=== PATIENT | male | born 1960 | race African-American/Black ===

== ENCOUNTER 2016-06-21 03:48 | Emergency (ER) | payer OTHER ==
[~2016-06-21] VITALS: Ht 177.8 cm; Wt 109.1 kg
[~2016-06-21 03:48] MED LIST: FERR-89 PO; OLAN7.5T2 PO
[2016-06-21 05:07] VITALS: BP 135/72
[2016-06-21] MEDS ORDERED: ATEN25 PO (05:27)
[2016-06-21] MEDS ORDERED: IBUPROFEN 600 MG TABLET PO ONE (06:15)
== END 2016-06-21 06:13 | disposition home or self-care (01) ==
LOC: EMS 03:49
DX: S83.91XA Sprain of unspecified site of right knee, initial encounter (principal); X58.XXXA Exposure to other specified factors, initial encounter; Y93.89 Activity, other specified; Y92.89 Other specified places as the place of occurrence of the external cause; Y99.8 Other external cause status
CPT/HCPCS: 99284

== ENCOUNTER 2016-09-14 07:15 | Inpatient (IN) | payer MEDICAID, OTHER ==
[~2016-09-14] VITALS: Ht 177.8 cm; Wt 109.4 kg
[2016-09-14 07:56] LABS: BASOPHILS % (AUTO) 0.1 % (0.0-2.0); EOSINOPHILS % (AUTO) 5.9 % (1.0-6.0); HEMATOCRIT 42.6 % (41-53); HEMOGLOBIN 13.6 g/dL (13.5-17.5); LYMPHOCYTES # (AUTO) 0.6 K/uL (1.0-4.8); LYMPHOCYTES % (AUTO) 12.8 % (22.0-44.0); MEAN CORPUSCULAR HEMOGLOBIN 28.6 pg (26.0-34.0); MEAN CORPUSCULAR VOLUME 90 fL (80-100); MONOCYTES # (AUTO) 0.4 K/uL (0.1-1.0); NEUTROPHILS # (AUTO) 3.6 K/uL (1.8-7.7); NEUTROPHILS % (AUTO) 73.2 % (40.0-70.0); PLATELET COUNT (AUTO) 188 K/uL (150-450); RED BLOOD CELL COUNT(AUTO) 4.76 MIL/uL (4.50-5.90); RED CELL DISTRIBUTION WIDTH 14.5 % (11.5-14.5)
[2016-09-14 08:06] LABS: ANION GAP 6 mmol/L (8-16); CALCIUM, TOTAL 8.7 mg/dL (8.8-10.5); CARBON DIOXIDE 32 mmol/L (22-29); CHLORIDE 104 mmol/L (98-107); CREATININE 0.77 mg/dL (0.60-1.30); GLOMERULAR FILTR. RATE CALC > 60 mL/min (>60); POTASSIUM 3.4 mmol/L (3.5-5.1); SODIUM SERUM 142 mmol/L (136-145); UREA NITROGEN, BLOOD 12 mg/dL (7-18)
[2016-09-14 08:11] LABS: ALANINE AMINOTRANSFERASE 32 U/L (12-78); ALBUMIN 3.9 g/dL (3.4-5.0); ASPARTATE AMINOTRANSFERASE 48 U/L (15-37); BILIRUBIN,TOTAL 0.7 mg/dL (0.1-1.0); TOTAL PROTEIN, SERUM 8.4 g/dL (6.4-8.2)
[2016-09-14 12:00] VITALS: BP 133/69
[2016-09-14] MEDS ORDERED: POTASSIUM CHLORIDE 20 MEQ ER TABLET PO ONE (12:45)
[2016-09-14 16:00] VITALS: BP 124/67
[2016-09-14] MEDS: OLANZapine 10 MG TABLET PO SCH (20:15)
[2016-09-14] MEDS: LORazepam 2 MG TABLET PO PRN (20:15)
[2016-09-15 06:49] VITALS: BP 121/78
[2016-09-15 08:44] VITALS: BP 109/61
[2016-09-15 09:24] LABS: ALANINE AMINOTRANSFERASE 23 U/L (12-78); ALBUMIN 2.9 g/dL (3.4-5.0); ANION GAP 7 mmol/L (8-16); ASPARTATE AMINOTRANSFERASE 29 U/L (15-37); BILIRUBIN,TOTAL 0.3 mg/dL (0.1-1.0); CALCIUM, TOTAL 8.5 mg/dL (8.8-10.5); CARBON DIOXIDE 28 mmol/L (22-29); CHLORIDE 106 mmol/L (98-107); CHOL/HDL RATIO 2.7 (4.2-7.3); CREATININE 0.74 mg/dL (0.60-1.30); GLOMERULAR FILTR. RATE CALC > 60 mL/min (>60); POTASSIUM 3.7 mmol/L (3.5-5.1); SODIUM SERUM 141 mmol/L (136-145); THYROID STIMULATING HORMONE 0.97 uIU/mL (0.36-3.74); UREA NITROGEN, BLOOD 12 mg/dL (7-18)
[2016-09-15 16:13] VITALS: BP 136/68
[2016-09-15] MEDS: HALOPERIDOL 5 MG TABLET PO PRN (16:13)
[2016-09-15] MEDS: LORazepam 2 MG TABLET PO PRN ×2 (16:13→20:19)
[2016-09-15] MEDS: OXYBUTYNIN CHLORIDE 5 MG TABLET PO SCH (20:02)
[2016-09-15] MEDS: OLANZapine 10 MG TABLET PO SCH (20:19)
[2016-09-16 06:00] VITALS: BP 139/67
[2016-09-16 08:14] VITALS: BP 133/60
[2016-09-16] MEDS: OXYBUTYNIN CHLORIDE 5 MG TABLET PO SCH ×2 (09:29→16:45)
[2016-09-16] MEDS: LORazepam 2 MG TABLET PO PRN (09:35)
[2016-09-16] MEDS: HALOPERIDOL 5 MG TABLET PO PRN (09:35)
[2016-09-16 16:27] VITALS: BP 133/64
[2016-09-16] MEDS: OLANZapine 10 MG TABLET PO SCH (20:56)
[2016-09-17] MEDS: LORazepam 2 MG TABLET PO PRN ×2 (04:09→17:34)
[2016-09-17 06:59] VITALS: BP 136/68
[2016-09-17 07:07] VITALS: BP 128/83
[2016-09-17 09:09] VITALS: BP 134/73
[2016-09-17] MEDS: OXYBUTYNIN CHLORIDE 5 MG TABLET PO SCH ×2 (09:11→17:34)
[2016-09-17 16:33] VITALS: BP 124/68
[2016-09-17] MEDS: HALOPERIDOL 5 MG TABLET PO PRN (17:34)
[2016-09-17] MEDS: OLANZapine 10 MG TABLET PO SCH (20:13)
[2016-09-18 06:50] VITALS: BP 115/63
[2016-09-18 08:16] VITALS: BP 144/77
[2016-09-18] MEDS: OXYBUTYNIN CHLORIDE 5 MG TABLET PO SCH ×2 (09:39→17:02)
[2016-09-18 16:25] VITALS: BP 135/80
[2016-09-18] MEDS: HALOPERIDOL 5 MG TABLET PO PRN (17:02)
[2016-09-18] MEDS: LORazepam 2 MG TABLET PO PRN (17:02)
[2016-09-18] MEDS: OLANZapine 10 MG TABLET PO SCH (20:36)
[2016-09-19 06:55] VITALS: BP 136/73
[2016-09-19 08:14] VITALS: BP 122/59
[2016-09-19] MEDS: HALOPERIDOL 5 MG TABLET PO PRN ×2 (08:27→16:10)
[2016-09-19] MEDS: OXYBUTYNIN CHLORIDE 5 MG TABLET PO SCH ×2 (08:27→16:10)
[2016-09-19] MEDS: LORazepam 2 MG TABLET PO PRN ×3 (08:27→20:13)
[2016-09-19 10:13] LABS: APPEARANCE,URINE CLEAR (CLEAR); GLUCOSE, URINE (UA) NEGATIVE (NEGATIVE); KETONES,URINE NEGATIVE (NEGATIVE); LEUKOCYTE ESTERASE ,URINE NEGATIVE (NEGATIVE); OCCULT BLOOD,URINE NEGATIVE (NEGATIVE); PROTEIN,URINE NEGATIVE (NEGATIVE)
[2016-09-19 10:20] LABS: ADD UA MICROSCOPIC NO
[2016-09-19 16:00] VITALS: BP 138/76
[2016-09-19] MEDS: OLANZapine 10 MG TABLET PO SCH (20:13)
[2016-09-19] MEDS: ZOLPIDEM TARTRATE 10 MG TABLET PO PRN (20:13)
[2016-09-20 07:22] VITALS: BP 132/79
[2016-09-20 08:13] VITALS: BP 141/83
[2016-09-20] MEDS: OXYBUTYNIN CHLORIDE 5 MG TABLET PO SCH ×2 (09:34→16:34)
[2016-09-20 16:00] VITALS: BP 135/75
[2016-09-20] MEDS: LORazepam 2 MG TABLET PO PRN ×2 (16:38→22:28)
[2016-09-20] MEDS: OLANZapine 10 MG TABLET PO SCH (20:18)
[2016-09-20] MEDS: ZOLPIDEM TARTRATE 10 MG TABLET PO PRN (21:31)
[2016-09-21 00:56] VITALS: BP 139/78
[2016-09-21] MEDS: HALOPERIDOL 5 MG TABLET PO PRN (01:00)
[2016-09-21 08:18] VITALS: BP 147/70
[2016-09-21] MEDS: OXYBUTYNIN CHLORIDE 5 MG TABLET PO SCH ×2 (08:51→16:57)
[2016-09-21 16:21] VITALS: BP 124/68
[2016-09-21] MEDS: OLANZapine 10 MG TABLET PO SCH (21:04)
[2016-09-22 06:37] VITALS: BP 144/81
[2016-09-22] MEDS: LORazepam 2 MG TABLET PO PRN ×2 (08:23→16:29)
[2016-09-22] MEDS: OXYBUTYNIN CHLORIDE 5 MG TABLET PO SCH ×2 (08:23→16:29)
[2016-09-22] MEDS: HALOPERIDOL 5 MG TABLET PO PRN ×2 (08:23→16:29)
[2016-09-22 08:38] VITALS: BP 125/64
[2016-09-22 16:00] VITALS: BP 129/70
[2016-09-22] MEDS: OLANZapine 5 MG TABLET PO SCH (20:50)
[2016-09-23 07:20] VITALS: BP 121/78
[2016-09-23 08:00] VITALS: BP 141/68
[2016-09-23] MEDS: HALOPERIDOL 5 MG TABLET PO PRN (09:20)
[2016-09-23] MEDS: LORazepam 2 MG TABLET PO PRN (09:20)
[2016-09-23] MEDS: OXYBUTYNIN CHLORIDE 5 MG TABLET PO SCH ×2 (09:20→17:34)
[2016-09-23 16:00] VITALS: BP 124/62
[2016-09-23] MEDS: OLANZapine 5 MG TABLET PO SCH (20:35)
[2016-09-24 07:21] VITALS: BP 120/61
[2016-09-24 08:08] VITALS: BP 133/68
[2016-09-24] MEDS: OXYBUTYNIN CHLORIDE 5 MG TABLET PO SCH ×2 (08:13→16:55)
[2016-09-24] MEDS: LORazepam 2 MG TABLET PO PRN (08:26)
[2016-09-24 16:16] VITALS: BP 125/69
[2016-09-24] MEDS: OLANZapine 5 MG TABLET PO SCH (20:56)
[2016-09-25] MEDS: LORazepam 2 MG TABLET PO PRN (01:07)
[2016-09-25] MEDS: ZOLPIDEM TARTRATE 10 MG TABLET PO PRN (01:07)
[2016-09-25 07:26] VITALS: BP 125/79
[2016-09-25 08:36] VITALS: BP 141/68
[2016-09-25] MEDS: OXYBUTYNIN CHLORIDE 5 MG TABLET PO SCH ×2 (08:43→16:03)
[2016-09-25 16:07] VITALS: BP 126/64
[2016-09-25] MEDS: OLANZapine 5 MG TABLET PO SCH (20:34)
[2016-09-26 06:37] VITALS: BP 122/76
[2016-09-26 08:18] VITALS: BP 112/73
[2016-09-26] MEDS: OXYBUTYNIN CHLORIDE 5 MG TABLET PO SCH ×2 (08:24→16:09)
[2016-09-26 09:30] VITALS: BP 115/49
[2016-09-26 16:01] VITALS: BP 121/74
[2016-09-26] MEDS: OLANZapine 5 MG TABLET PO SCH (20:12)
[2016-09-27 07:14] VITALS: BP 129/72
[2016-09-27 08:17] VITALS: BP 129/70
[2016-09-27] MEDS: OXYBUTYNIN CHLORIDE 5 MG TABLET PO SCH ×2 (08:23→16:18)
[2016-09-27 16:03] VITALS: BP 136/68
[2016-09-27] MEDS: OLANZapine 5 MG TABLET PO SCH (20:15)
[2016-09-28 06:41] VITALS: BP 119/73
[2016-09-28] MEDS: OXYBUTYNIN CHLORIDE 5 MG TABLET PO SCH ×2 (08:20→15:38)
[2016-09-28 08:33] VITALS: BP 132/60
[2016-09-28 15:34] VITALS: BP 124/84
[2016-09-28 16:00] VITALS: BP 124/83
[2016-09-28] MEDS: OLANZapine 5 MG TABLET PO SCH (20:24)
[2016-09-29 06:30] VITALS: BP 135/87
[2016-09-29] MEDS: LORazepam 2 MG TABLET PO PRN (06:36)
[2016-09-29 08:01] VITALS: BP 122/78
[2016-09-29] MEDS: OXYBUTYNIN CHLORIDE 5 MG TABLET PO SCH ×2 (08:08→16:06)
[2016-09-29 16:00] VITALS: BP 141/78
[2016-09-29] MEDS: OLANZapine 5 MG TABLET PO SCH (20:01)
[2016-09-30] MEDS: ZOLPIDEM TARTRATE 10 MG TABLET PO PRN (00:02)
[2016-09-30 00:10] VITALS: BP 133/76
[2016-09-30] MEDS: OXYBUTYNIN CHLORIDE 5 MG TABLET PO SCH ×2 (08:32→16:48)
[2016-09-30 09:12] VITALS: BP 155/84
[2016-09-30 16:35] VITALS: BP 142/80
[2016-09-30] MEDS: OLANZapine 5 MG TABLET PO SCH (20:14)
[2016-10-01 06:42] VITALS: BP 142/94
[2016-10-01 08:27] VITALS: BP 136/68
[2016-10-01] MEDS: OXYBUTYNIN CHLORIDE 5 MG TABLET PO SCH ×2 (08:31→16:48)
[2016-10-01 16:39] VITALS: BP 147/70
[2016-10-01] MEDS: OLANZapine 5 MG TABLET PO SCH (20:40)
[2016-10-02 05:45] VITALS: BP 138/85
[2016-10-02 08:35] VITALS: BP 138/61
[2016-10-02] MEDS: OXYBUTYNIN CHLORIDE 5 MG TABLET PO SCH ×2 (08:58→16:26)
[2016-10-02 16:06] VITALS: BP 130/73
[2016-10-02] MEDS: OLANZapine 10 MG TABLET PO SCH (20:42)
[2016-10-03 07:12] VITALS: BP 122/75
[2016-10-03 08:10] VITALS: BP 123/64
[2016-10-03] MEDS: OXYBUTYNIN CHLORIDE 5 MG TABLET PO SCH ×2 (09:01→17:22)
[2016-10-03 16:00] VITALS: BP 134/89
[2016-10-03] MEDS: OLANZapine 10 MG TABLET PO SCH (21:37)
[2016-10-04 07:21] VITALS: BP 129/72
[2016-10-04 08:35] VITALS: BP 134/71
[2016-10-04] MEDS: OXYBUTYNIN CHLORIDE 5 MG TABLET PO SCH ×2 (08:59→16:46)
[2016-10-04 16:19] VITALS: BP 130/70
[2016-10-04] MEDS: OLANZapine 10 MG TABLET PO SCH (20:37)
[2016-10-05 06:37] VITALS: BP 111/73
[2016-10-05 08:20] VITALS: BP 116/58
[2016-10-05] MEDS: OXYBUTYNIN CHLORIDE 5 MG TABLET PO SCH ×2 (08:48→17:00)
[2016-10-05 16:39] VITALS: BP 138/65
[2016-10-05] MEDS: OLANZapine 10 MG TABLET PO SCH (20:18)
[2016-10-06 03:14] VITALS: BP 139/85
[2016-10-06 08:10] VITALS: BP 117/70
[2016-10-06] MEDS: OXYBUTYNIN CHLORIDE 5 MG TABLET PO SCH ×2 (09:51→16:33)
[2016-10-06 16:16] VITALS: BP 136/74
[2016-10-06] MEDS: OLANZapine 10 MG TABLET PO SCH (20:21)
[2016-10-07] VITALS: BP 137/75
[2016-10-07 08:24] VITALS: BP 139/79
[2016-10-07] MEDS: OXYBUTYNIN CHLORIDE 5 MG TABLET PO SCH ×2 (08:56→17:50)
[2016-10-07] MEDS: OLANZapine 10 MG TABLET PO SCH ×2 (08:56→20:23)
[2016-10-07 16:00] VITALS: BP 135/83
[2016-10-07 20:52] LABS: GLUCOSE,POINT OF CARE 120 MG/DL (70-110)
[2016-10-08 00:13] VITALS: BP 130/71
[2016-10-08 06:00] VITALS: BP 130/64
[2016-10-08 08:09] VITALS: BP 132/64
[2016-10-08] MEDS: OLANZapine 10 MG TABLET PO SCH ×2 (08:15→20:10)
[2016-10-08] MEDS: OXYBUTYNIN CHLORIDE 5 MG TABLET PO SCH ×2 (08:16→16:13)
[2016-10-08 16:00] VITALS: BP 138/74
[2016-10-09 03:01] VITALS: BP 137/83
[2016-10-09 08:08] VITALS: BP 145/80
[2016-10-09] MEDS: OXYBUTYNIN CHLORIDE 5 MG TABLET PO SCH ×2 (08:22→16:02)
[2016-10-09] MEDS: OLANZapine 10 MG TABLET PO SCH ×2 (08:22→20:32)
[2016-10-09 16:09] VITALS: BP 139/73
[2016-10-10 04:11] VITALS: BP 140/83
[2016-10-10] MEDS: OLANZapine 10 MG TABLET PO SCH ×2 (08:21→20:11)
[2016-10-10] MEDS: OXYBUTYNIN CHLORIDE 5 MG TABLET PO SCH ×2 (08:21→16:30)
[2016-10-10 09:20] VITALS: BP 129/58
[2016-10-10 17:54] VITALS: BP 118/76
[2016-10-11 00:11] VITALS: BP 126/74
[2016-10-11] MEDS: OXYBUTYNIN CHLORIDE 5 MG TABLET PO SCH ×2 (08:06→16:56)
[2016-10-11] MEDS: OLANZapine 10 MG TABLET PO SCH ×2 (08:06→20:30)
[2016-10-11 09:14] VITALS: BP 129/75
[2016-10-11 16:00] VITALS: BP 129/67
[2016-10-12 01:40] VITALS: BP 144/76
[2016-10-12] MEDS: ZOLPIDEM TARTRATE 10 MG TABLET PO PRN (01:46)
[2016-10-12 07:35] LABS: BASOPHILS % (AUTO) 0.3 % (0.0-2.0); EOSINOPHILS % (AUTO) 3.5 % (1.0-6.0); HEMATOCRIT 40.1 % (41-53); HEMOGLOBIN 12.7 g/dL (13.5-17.5); LYMPHOCYTES # (AUTO) 1.2 K/uL (1.0-4.8); MEAN CORPUSCULAR HEMOGLOBIN 28.3 pg (26.0-34.0); MEAN CORPUSCULAR HGB CONC 31.7 G/dL (31.0-37.0); MEAN CORPUSCULAR VOLUME 89 fL (80-100); MONOCYTES # (AUTO) 0.5 K/uL (0.1-1.0); MONOCYTES % (AUTO) 9.5 % (2.0-9.0); NEUTROPHILS # (AUTO) 3.1 K/uL (1.8-7.7); NEUTROPHILS % (AUTO) 61.7 % (40.0-70.0); PLATELET COUNT (AUTO) 158 K/uL (150-450); RED BLOOD CELL COUNT(AUTO) 4.51 MIL/uL (4.50-5.90)
[2016-10-12 07:43] LABS: ALANINE AMINOTRANSFERASE 20 U/L (12-78); ALBUMIN 3.9 g/dL (3.4-5.0); ANION GAP 6 mmol/L (8-16); ASPARTATE AMINOTRANSFERASE 20 U/L (15-37); BILIRUBIN,TOTAL 0.4 mg/dL (0.1-1.0); CALCIUM, TOTAL 9.2 mg/dL (8.8-10.5); CARBON DIOXIDE 33 mmol/L (22-29); CHLORIDE 102 mmol/L (98-107); CREATININE 0.89 mg/dL (0.60-1.30); GLOMERULAR FILTR. RATE CALC > 60 mL/min (>60); POTASSIUM 3.8 mmol/L (3.5-5.1); SODIUM SERUM 141 mmol/L (136-145); TOTAL PROTEIN, SERUM 8.6 g/dL (6.4-8.2); UREA NITROGEN, BLOOD 15 mg/dL (7-18)
[2016-10-12 07:47] LABS: HEMOGLOBIN A1C 6.4 % (4.5-6.2)
[2016-10-12 08:30] VITALS: BP 120/83
[2016-10-12] MEDS: OLANZapine 10 MG TABLET PO SCH ×2 (09:59→20:26)
[2016-10-12] MEDS: OXYBUTYNIN CHLORIDE 5 MG TABLET PO SCH ×2 (09:59→16:18)
[2016-10-12 16:00] VITALS: BP 140/74
[2016-10-13 07:00] VITALS: BP 142/76
[2016-10-13 08:10] VITALS: BP 136/75
[2016-10-13] MEDS: OLANZapine 10 MG TABLET PO SCH ×2 (08:42→20:07)
[2016-10-13] MEDS: OXYBUTYNIN CHLORIDE 5 MG TABLET PO SCH ×2 (08:42→16:05)
[2016-10-13 16:00] VITALS: BP 126/69
[2016-10-14 04:44] VITALS: BP 138/81
[2016-10-14 08:15] VITALS: BP 136/76
[2016-10-14] MEDS: OLANZapine 10 MG TABLET PO SCH ×2 (08:22→20:12)
[2016-10-14] MEDS: OXYBUTYNIN CHLORIDE 5 MG TABLET PO SCH ×2 (08:22→17:00)
[2016-10-14 16:00] VITALS: BP 135/68
[2016-10-15 05:05] VITALS: BP 132/68
[2016-10-15 08:19] VITALS: BP 133/72
[2016-10-15] MEDS: OXYBUTYNIN CHLORIDE 5 MG TABLET PO SCH ×2 (08:52→16:20)
[2016-10-15] MEDS: OLANZapine 10 MG TABLET PO SCH ×2 (08:52→20:45)
[2016-10-15 16:00] VITALS: BP 132/72
[2016-10-16 00:36] VITALS: BP 128/70
[2016-10-16 08:08] VITALS: BP 115/67
[2016-10-16] MEDS: OLANZapine 10 MG TABLET PO SCH ×2 (08:28→20:37)
[2016-10-16] MEDS: OXYBUTYNIN CHLORIDE 5 MG TABLET PO SCH ×2 (08:28→16:44)
[2016-10-16 16:09] VITALS: BP 141/70
[2016-10-17 00:15] VITALS: BP 107/64
[2016-10-17] MEDS: ZOLPIDEM TARTRATE 10 MG TABLET PO PRN (00:20)
[2016-10-17] MEDS: OLANZapine 10 MG TABLET PO SCH ×2 (08:11→20:16)
[2016-10-17] MEDS: OXYBUTYNIN CHLORIDE 5 MG TABLET PO SCH ×2 (08:11→16:02)
[2016-10-17 08:32] VITALS: BP 121/68
[2016-10-17] MEDS ORDERED: OLANZapine 10 MG TABLET PO ONE (10:30)
[2016-10-17 16:06] VITALS: BP 135/76
[2016-10-18 05:41] VITALS: BP 138/90
[2016-10-18] MEDS: LOPERAMIDE HCL 2 MG CAPSULE PO PRN (06:42)
[2016-10-18] MEDS: OLANZapine 10 MG TABLET PO SCH ×2 (08:07→20:18)
[2016-10-18] MEDS: OXYBUTYNIN CHLORIDE 5 MG TABLET PO SCH ×2 (08:07→16:09)
[2016-10-18 08:16] VITALS: BP 127/69
[2016-10-18 16:13] VITALS: BP 126/67
[2016-10-18 18:56] VITALS: BP 134/99
[2016-10-19 00:18] VITALS: BP 136/78
[2016-10-19] MEDS: OLANZapine 10 MG TABLET PO SCH ×2 (08:29→20:52)
[2016-10-19] MEDS: OXYBUTYNIN CHLORIDE 5 MG TABLET PO SCH ×2 (08:29→16:16)
[2016-10-19 08:51] VITALS: BP 122/69
[2016-10-19 16:11] VITALS: BP 129/73
[2016-10-20 05:58] VITALS: BP 140/71
[2016-10-20] MEDS: OLANZapine 10 MG TABLET PO SCH ×2 (08:07→20:32)
[2016-10-20] MEDS: OXYBUTYNIN CHLORIDE 5 MG TABLET PO SCH ×2 (08:07→16:03)
[2016-10-20 08:30] VITALS: BP 132/73
[2016-10-20 16:04] VITALS: BP 135/71
[2016-10-21 04:27] VITALS: BP 148/90
[2016-10-21 08:16] VITALS: BP 139/81
[2016-10-21] MEDS: OLANZapine 10 MG TABLET PO SCH ×2 (08:19→20:40)
[2016-10-21] MEDS: OXYBUTYNIN CHLORIDE 5 MG TABLET PO SCH ×2 (08:19→16:50)
[2016-10-21 16:00] VITALS: BP 134/84
[2016-10-22 06:39] VITALS: BP 125/73
[2016-10-22 08:20] VITALS: BP 135/93
[2016-10-22] MEDS: OXYBUTYNIN CHLORIDE 5 MG TABLET PO SCH ×2 (08:23→17:04)
[2016-10-22] MEDS: OLANZapine 10 MG TABLET PO SCH ×2 (08:23→20:06)
[2016-10-22 16:14] VITALS: BP 132/76
[2016-10-22] MEDS: ZOLPIDEM TARTRATE 10 MG TABLET PO PRN (21:13)
[2016-10-23 06:17] VITALS: BP 134/78
[2016-10-23 08:08] VITALS: BP 113/74
[2016-10-23] MEDS: OXYBUTYNIN CHLORIDE 5 MG TABLET PO SCH ×2 (08:26→16:25)
[2016-10-23] MEDS: OLANZapine 10 MG TABLET PO SCH ×2 (08:26→20:36)
[2016-10-23 16:35] VITALS: BP 133/97
[2016-10-23] MEDS: LOPERAMIDE HCL 2 MG CAPSULE PO PRN (23:01)
[2016-10-24 06:15] VITALS: BP 139/82
[2016-10-24] MEDS: OXYBUTYNIN CHLORIDE 5 MG TABLET PO SCH ×2 (08:07→16:12)
[2016-10-24] MEDS: OLANZapine 10 MG TABLET PO SCH ×2 (08:08→20:02)
[2016-10-24 08:12] VITALS: BP 136/65
[2016-10-24 16:07] VITALS: BP 135/77
[2016-10-25 00:03] VITALS: BP 136/79
[2016-10-25] MEDS: OXYBUTYNIN CHLORIDE 5 MG TABLET PO SCH ×2 (08:00→16:44)
[2016-10-25] MEDS: OLANZapine 10 MG TABLET PO SCH ×2 (08:00→20:09)
[2016-10-25 08:38] VITALS: BP 128/78
[2016-10-25 16:36] VITALS: BP 104/60
[2016-10-26 00:30] VITALS: BP 135/70
[2016-10-26 08:05] VITALS: BP 140/78
[2016-10-26] MEDS: OLANZapine 10 MG TABLET PO SCH ×2 (08:22→20:18)
[2016-10-26] MEDS: OXYBUTYNIN CHLORIDE 5 MG TABLET PO SCH ×2 (08:22→16:28)
[2016-10-26 16:00] VITALS: BP 134/66
[2016-10-27 06:33] VITALS: BP 140/87
[2016-10-27 08:01] VITALS: BP 137/69
[2016-10-27] MEDS: OLANZapine 10 MG TABLET PO SCH ×2 (09:46→21:34)
[2016-10-27] MEDS: OXYBUTYNIN CHLORIDE 5 MG TABLET PO SCH ×2 (09:46→16:17)
[2016-10-27] MEDS: HALOPERIDOL 5 MG TABLET PO PRN (14:22)
[2016-10-27 16:04] VITALS: BP 135/75
[2016-10-27] MEDS: LORazepam 2 MG TABLET PO PRN (16:42)
[2016-10-28 07:08] VITALS: BP 118/74
[2016-10-28] MEDS: OXYBUTYNIN CHLORIDE 5 MG TABLET PO SCH ×2 (08:16→16:07)
[2016-10-28] MEDS: OLANZapine 10 MG TABLET PO SCH ×2 (08:16→20:12)
[2016-10-28 08:29] VITALS: BP 129/76
[2016-10-28] MEDS: HALOPERIDOL 5 MG TABLET PO PRN (08:35)
[2016-10-28 16:00] VITALS: BP 135/79
[2016-10-29 06:13] VITALS: BP 126/80
[2016-10-29 08:24] VITALS: BP 128/60
[2016-10-29] MEDS: OLANZapine 10 MG TABLET PO SCH ×2 (08:27→20:13)
[2016-10-29] MEDS: OXYBUTYNIN CHLORIDE 5 MG TABLET PO SCH ×2 (08:27→17:42)
[2016-10-29 16:22] VITALS: BP 135/71
[2016-10-30 00:18] VITALS: BP 109/60
[2016-10-30 08:07] VITALS: BP 149/77
[2016-10-30] MEDS: OXYBUTYNIN CHLORIDE 5 MG TABLET PO SCH ×2 (08:28→17:02)
[2016-10-30] MEDS: OLANZapine 10 MG TABLET PO SCH ×2 (08:28→21:00)
[2016-10-30 18:31] VITALS: BP 124/72
[2016-10-31 06:59] VITALS: BP 157/80
[2016-10-31] MEDS: CloNIDine HCL 0.1 MG TABLET PO PRN (07:01)
[2016-10-31 08:16] VITALS: BP 134/88
[2016-10-31] MEDS: OXYBUTYNIN CHLORIDE 5 MG TABLET PO SCH ×2 (08:24→17:11)
[2016-10-31] MEDS: OLANZapine 10 MG TABLET PO SCH ×2 (08:25→20:41)
[2016-10-31] MEDS: HALOPERIDOL 5 MG TABLET PO PRN (08:56)
[2016-10-31 16:11] VITALS: BP 137/77
[2016-11-01 02:17] VITALS: BP 133/81
[2016-11-01 08:16] VITALS: BP 162/84
[2016-11-01] MEDS: OXYBUTYNIN CHLORIDE 5 MG TABLET PO SCH ×2 (08:22→16:14)
[2016-11-01] MEDS: LORazepam 2 MG TABLET PO PRN (08:22)
[2016-11-01] MEDS: OLANZapine 10 MG TABLET PO SCH ×2 (08:22→20:10)
[2016-11-01 16:28] VITALS: BP 131/78
[2016-11-02 00:02] VITALS: BP 139/76
[2016-11-02] MEDS: OLANZapine 10 MG TABLET PO SCH ×2 (08:04→20:13)
[2016-11-02] MEDS: OXYBUTYNIN CHLORIDE 5 MG TABLET PO SCH ×2 (08:04→16:17)
[2016-11-02 09:00] VITALS: BP 139/74
[2016-11-02 16:10] VITALS: BP 134/87
[2016-11-03 06:31] VITALS: BP 128/88
[2016-11-03 08:39] VITALS: BP 144/75
[2016-11-03] MEDS: OXYBUTYNIN CHLORIDE 5 MG TABLET PO SCH ×2 (09:34→16:22)
[2016-11-03] MEDS: OLANZapine 10 MG TABLET PO SCH ×2 (09:34→21:36)
[2016-11-03 15:55] VITALS: BP 142/70
[2016-11-03 16:00] VITALS: BP 142/70
[2016-11-03] MEDS: ZOLPIDEM TARTRATE 10 MG TABLET PO PRN (21:36)
[2016-11-04 00:11] VITALS: BP 133/80
[2016-11-04 08:06] VITALS: BP 128/72
[2016-11-04] MEDS: OLANZapine 10 MG TABLET PO SCH ×2 (09:37→20:24)
[2016-11-04] MEDS: OXYBUTYNIN CHLORIDE 5 MG TABLET PO SCH ×2 (09:37→16:46)
[2016-11-04 16:07] VITALS: BP 125/72
[2016-11-05 01:19] VITALS: BP 131/82
[2016-11-05] MEDS: OXYBUTYNIN CHLORIDE 5 MG TABLET PO SCH ×2 (08:17→16:34)
[2016-11-05] MEDS: OLANZapine 10 MG TABLET PO SCH ×2 (08:17→20:55)
[2016-11-05 08:30] VITALS: BP_SYST 127; BP_SYST 136; BP_DIAS 68; BP_DIAS 74
[2016-11-05 16:02] VITALS: BP 140/66
[2016-11-06 06:15] VITALS: BP 138/83
[2016-11-06] MEDS: OXYBUTYNIN CHLORIDE 5 MG TABLET PO SCH ×2 (08:21→17:17)
[2016-11-06] MEDS: OLANZapine 10 MG TABLET PO SCH ×2 (08:21→20:10)
[2016-11-06 08:25] VITALS: BP 123/69
[2016-11-06 10:25] VITALS: BP 148/79
[2016-11-06 10:30] VITALS: BP 148/79
[2016-11-06 16:30] VITALS: BP 132/63
[2016-11-06] MEDS: LORazepam 2 MG TABLET PO PRN (17:17)
[2016-11-07 03:17] VITALS: BP 130/74
[2016-11-07 08:03] VITALS: BP 133/78
[2016-11-07] MEDS: OXYBUTYNIN CHLORIDE 5 MG TABLET PO SCH ×2 (08:57→16:06)
[2016-11-07] MEDS: OLANZapine 10 MG TABLET PO SCH ×2 (08:57→20:09)
[2016-11-07 16:07] VITALS: BP 128/75
[2016-11-08] VITALS (7 sets, daily range): BP systolic 118–134; BP diastolic 72–91
[2016-11-08] MEDS: OLANZapine 10 MG TABLET PO SCH ×2 (08:27→20:27)
[2016-11-08] MEDS: OXYBUTYNIN CHLORIDE 5 MG TABLET PO SCH ×2 (08:27→16:43)
[2016-11-08] MEDS ORDERED: GuaiFENesin/D-METHORPHAN [SUGAR-FREE] 200-20MG/10 ML SYRUP UDCUP PO PRN (13:30)
[2016-11-08] MEDS ORDERED: ACETAMINOPHEN 325 MG TABLET PO PRN (13:30)
[2016-11-08] MEDS ORDERED: IBUPROFEN 400 MG TABLET PO ONE (17:00)
[2016-11-08] MEDS: ACETAMINOPHEN 325 MG TABLET PO PRN (21:09)
[2016-11-09 02:30] VITALS: BP 136/76
[2016-11-09] MEDS: OXYBUTYNIN CHLORIDE 5 MG TABLET PO SCH ×2 (08:10→16:56)
[2016-11-09] MEDS: OLANZapine 10 MG TABLET PO SCH ×2 (08:10→20:48)
[2016-11-09 09:25] VITALS: BP 119/62
[2016-11-09] MEDS: HALOPERIDOL 5 MG TABLET PO PRN (11:23)
[2016-11-09] MEDS: ACETAMINOPHEN 325 MG TABLET PO PRN (13:37)
[2016-11-09 14:43] VITALS: BP 122/64
[2016-11-09 16:31] VITALS: BP 141/80
[2016-11-10 01:10] VITALS: BP 143/82
[2016-11-10 08:01] VITALS: BP 130/76
[2016-11-10] MEDS: OLANZapine 10 MG TABLET PO SCH ×2 (08:36→20:33)
[2016-11-10] MEDS: OXYBUTYNIN CHLORIDE 5 MG TABLET PO SCH ×2 (08:36→16:13)
[2016-11-10] MEDS: LORazepam 2 MG TABLET PO PRN (09:58)
[2016-11-10 09:59] VITALS: BP 130/76
[2016-11-10 16:10] VITALS: BP 151/100
[2016-11-10 18:11] VITALS: BP 136/78
[2016-11-11 06:11] VITALS: BP 132/81
[2016-11-11 08:01] VITALS: BP 132/79
[2016-11-11] MEDS: OLANZapine 10 MG TABLET PO SCH ×2 (08:18→20:14)
[2016-11-11] MEDS: OXYBUTYNIN CHLORIDE 5 MG TABLET PO SCH ×2 (08:18→17:47)
[2016-11-11 14:20] VITALS: BP 142/80
[2016-11-11] MEDS: ACETAMINOPHEN 325 MG TABLET PO PRN (14:22)
[2016-11-11 16:07] VITALS: BP 136/73
[2016-11-12 05:09] VITALS: BP 104/60
[2016-11-12 08:23] VITALS: BP 109/68
[2016-11-12] MEDS: OLANZapine 10 MG TABLET PO SCH ×2 (08:23→20:31)
[2016-11-12] MEDS: OXYBUTYNIN CHLORIDE 5 MG TABLET PO SCH ×2 (08:23→16:39)
[2016-11-12 16:21] VITALS: BP 145/90
[2016-11-13 06:24] VITALS: BP 108/54
[2016-11-13] MEDS: OXYBUTYNIN CHLORIDE 5 MG TABLET PO SCH ×2 (08:28→16:30)
[2016-11-13] MEDS: OLANZapine 10 MG TABLET PO SCH ×2 (08:28→20:12)
[2016-11-13 08:41] VITALS: BP 125/65
[2016-11-13 16:03] VITALS: BP 116/62
[2016-11-14 00:01] VITALS: BP 107/67
[2016-11-14] MEDS: OXYBUTYNIN CHLORIDE 5 MG TABLET PO SCH ×2 (08:28→16:40)
[2016-11-14] MEDS: OLANZapine 10 MG TABLET PO SCH ×2 (08:29→20:22)
[2016-11-14 08:37] VITALS: BP 146/77
[2016-11-14 16:05] VITALS: BP 120/65
[2016-11-15 06:14] VITALS: BP 138/78
[2016-11-15] MEDS: OXYBUTYNIN CHLORIDE 5 MG TABLET PO SCH ×2 (08:35→16:18)
[2016-11-15] MEDS: OLANZapine 10 MG TABLET PO SCH ×2 (08:35→20:06)
[2016-11-15 12:51] VITALS: BP 137/69
[2016-11-15 16:00] VITALS: BP 128/74
[2016-11-15] MEDS: ACETAMINOPHEN 325 MG TABLET PO PRN (16:28)
[2016-11-16 00:38] VITALS: BP 134/90
[2016-11-16] MEDS: OXYBUTYNIN CHLORIDE 5 MG TABLET PO SCH ×2 (09:05→16:32)
[2016-11-16] MEDS: OLANZapine 10 MG TABLET PO SCH ×2 (09:06→20:18)
[2016-11-16 09:10] VITALS: BP 137/67
[2016-11-16 16:09] VITALS: BP 132/71
[2016-11-17 06:32] VITALS: BP 138/65
[2016-11-17 08:22] VITALS: BP 132/81
[2016-11-17] MEDS: OLANZapine 10 MG TABLET PO SCH ×2 (08:40→20:13)
[2016-11-17] MEDS: OXYBUTYNIN CHLORIDE 5 MG TABLET PO SCH ×2 (08:40→16:21)
[2016-11-17 16:10] VITALS: BP 134/78
[2016-11-18 00:01] VITALS: BP 106/64
[2016-11-18] MEDS: OXYBUTYNIN CHLORIDE 5 MG TABLET PO SCH ×2 (08:12→16:36)
[2016-11-18] MEDS: OLANZapine 10 MG TABLET PO SCH ×2 (08:12→20:13)
[2016-11-18 08:48] VITALS: BP 120/70
[2016-11-18 16:02] VITALS: BP 129/78
[2016-11-19 00:45] VITALS: BP 128/77
[2016-11-19 08:30] VITALS: BP 145/72
[2016-11-19] MEDS: OXYBUTYNIN CHLORIDE 5 MG TABLET PO SCH ×2 (08:33→16:56)
[2016-11-19] MEDS: OLANZapine 10 MG TABLET PO SCH ×2 (08:33→20:12)
[2016-11-19 16:09] VITALS: BP 132/72
[2016-11-20 00:15] VITALS: BP 125/86
[2016-11-20 08:30] VITALS: BP 139/83
[2016-11-20] MEDS: OXYBUTYNIN CHLORIDE 5 MG TABLET PO SCH ×2 (08:31→16:13)
[2016-11-20] MEDS: OLANZapine 10 MG TABLET PO SCH ×2 (08:31→20:11)
[2016-11-20 16:30] VITALS: BP 146/84
[2016-11-21 00:25] VITALS: BP 144/88
[2016-11-21] MEDS: ACETAMINOPHEN 325 MG TABLET PO PRN (00:34)
[2016-11-21 01:30] VITALS: BP 140/82
[2016-11-21] MEDS: OLANZapine 10 MG TABLET PO SCH ×2 (08:08→20:18)
[2016-11-21] MEDS: OXYBUTYNIN CHLORIDE 5 MG TABLET PO SCH ×2 (08:24→16:36)
[2016-11-21 08:49] VITALS: BP 118/68
[2016-11-21 16:32] VITALS: BP 131/74
[2016-11-22 06:46] VITALS: BP 139/86
[2016-11-22] MEDS: OLANZapine 10 MG TABLET PO SCH ×2 (08:10→21:08)
[2016-11-22] MEDS: OXYBUTYNIN CHLORIDE 5 MG TABLET PO SCH ×2 (08:10→16:29)
[2016-11-22 09:41] VITALS: BP 125/54
[2016-11-22 16:15] VITALS: BP 122/65
[2016-11-23 00:05] VITALS: BP 138/85
[2016-11-23 07:52] LABS: ADD UA MICROSCOPIC NO; APPEARANCE,URINE CLEAR (CLEAR); GLUCOSE, URINE (UA) NEGATIVE (NEGATIVE); KETONES,URINE NEGATIVE (NEGATIVE); LEUKOCYTE ESTERASE ,URINE NEGATIVE (NEGATIVE); OCCULT BLOOD,URINE NEGATIVE (NEGATIVE); PROTEIN,URINE NEGATIVE (NEGATIVE)
[2016-11-23 08:00] VITALS: BP 120/82
[2016-11-23] MEDS: MAG HYDROX/AL HYDROX/SIMETH ES 30 ML SUSPENSION UDCUP PO PRN (08:26)
[2016-11-23] MEDS: ACETAMINOPHEN 325 MG TABLET PO PRN (08:27)
[2016-11-23] MEDS: OXYBUTYNIN CHLORIDE 5 MG TABLET PO SCH ×2 (09:17→16:42)
[2016-11-23] MEDS: OLANZapine 10 MG TABLET PO SCH ×2 (09:18→20:32)
[2016-11-23 16:05] VITALS: BP 146/71
[2016-11-24 00:15] VITALS: BP 128/66
[2016-11-24 08:00] VITALS: BP 129/68
[2016-11-24] MEDS: OXYBUTYNIN CHLORIDE 5 MG TABLET PO SCH ×2 (08:46→16:24)
[2016-11-24] MEDS: OLANZapine 10 MG TABLET PO SCH ×2 (08:47→20:23)
[2016-11-24] MEDS: MAG HYDROX/AL HYDROX/SIMETH ES 30 ML SUSPENSION UDCUP PO PRN (10:06)
[2016-11-24 16:05] VITALS: BP 132/78
[2016-11-25 05:07] VITALS: BP 128/67
[2016-11-25] MEDS: OLANZapine 10 MG TABLET PO SCH ×2 (08:12→20:17)
[2016-11-25] MEDS: OXYBUTYNIN CHLORIDE 5 MG TABLET PO SCH ×2 (08:12→16:18)
[2016-11-25 08:27] VITALS: BP 130/85
[2016-11-25 16:27] VITALS: BP 134/82
[2016-11-25] MEDS: HALOPERIDOL 5 MG TABLET PO PRN (20:49)
[2016-11-26 05:56] VITALS: BP_SYST 148; BP_SYST 156; BP_DIAS 82; BP_DIAS 95
[2016-11-26] MEDS: OXYBUTYNIN CHLORIDE 5 MG TABLET PO SCH ×2 (08:24→16:57)
[2016-11-26] MEDS: OLANZapine 10 MG TABLET PO SCH ×2 (08:24→20:26)
[2016-11-26 08:51] VITALS: BP 129/70
[2016-11-26 16:08] VITALS: BP 127/74
[2016-11-26] MEDS: HALOPERIDOL 5 MG TABLET PO PRN (17:12)
[2016-11-27 03:38] VITALS: BP 157/74
[2016-11-27] MEDS: CloNIDine HCL 0.1 MG TABLET PO PRN (03:48)
[2016-11-27 04:38] VITALS: BP 140/70
[2016-11-27] MEDS: OLANZapine 10 MG TABLET PO SCH ×2 (07:52→20:13)
[2016-11-27] MEDS: OXYBUTYNIN CHLORIDE 5 MG TABLET PO SCH ×2 (07:52→16:58)
[2016-11-27 08:05] VITALS: BP 113/70
[2016-11-27 16:00] VITALS: BP 119/70
[2016-11-27] MEDS: HALOPERIDOL 5 MG TABLET PO PRN (16:49)
[2016-11-27] MEDS: ACETAMINOPHEN 325 MG TABLET PO PRN (16:50)
[2016-11-28 00:55] VITALS: BP 130/71
[2016-11-28 08:00] VITALS: BP 139/79
[2016-11-28] MEDS: OLANZapine 10 MG TABLET PO SCH ×2 (08:22→20:34)
[2016-11-28] MEDS: OXYBUTYNIN CHLORIDE 5 MG TABLET PO SCH ×2 (08:22→16:01)
[2016-11-28] MEDS: ACETAMINOPHEN 325 MG TABLET PO PRN (10:22)
[2016-11-28] MEDS: HALOPERIDOL 5 MG TABLET PO PRN ×2 (11:07→15:54)
[2016-11-28 16:00] VITALS: BP 136/80
[2016-11-28 18:26] VITALS: BP 136/80
[2016-11-29 06:38] VITALS: BP 130/76
[2016-11-29 08:17] VITALS: BP 154/94
[2016-11-29] MEDS: OLANZapine 10 MG TABLET PO SCH ×2 (08:23→20:58)
[2016-11-29] MEDS: OXYBUTYNIN CHLORIDE 5 MG TABLET PO SCH ×2 (08:23→16:56)
[2016-11-29 16:34] VITALS: BP 135/83
[2016-11-30 06:25] VITALS: BP 128/77
[2016-11-30 07:47] VITALS: BP 134/70
[2016-11-30 08:05] VITALS: BP 134/70
[2016-11-30] MEDS: OLANZapine 10 MG TABLET PO SCH ×2 (09:06→20:06)
[2016-11-30] MEDS: LORazepam 2 MG TABLET PO PRN (09:06)
[2016-11-30] MEDS: OXYBUTYNIN CHLORIDE 5 MG TABLET PO SCH ×2 (09:08→16:08)
[2016-11-30 16:00] VITALS: BP 131/81
[2016-12-01 06:23] VITALS: BP 105/63
[2016-12-01 08:17] VITALS: BP 137/78
[2016-12-01] MEDS: OLANZapine 10 MG TABLET PO SCH ×2 (08:42→20:28)
[2016-12-01] MEDS: LORazepam 2 MG TABLET PO PRN ×3 (08:42→23:58)
[2016-12-01] MEDS: OXYBUTYNIN CHLORIDE 5 MG TABLET PO SCH ×2 (08:42→17:32)
[2016-12-01 16:00] VITALS: BP 135/69
[2016-12-01] MEDS: HALOPERIDOL 5 MG TABLET PO PRN (17:32)
[2016-12-01] MEDS: ZOLPIDEM TARTRATE 10 MG TABLET PO PRN (23:58)
[2016-12-02 00:45] VITALS: BP 148/88
[2016-12-02 08:28] VITALS: BP 115/85
[2016-12-02] MEDS: OXYBUTYNIN CHLORIDE 5 MG TABLET PO SCH ×2 (09:25→16:39)
[2016-12-02] MEDS: OLANZapine 10 MG TABLET PO SCH ×2 (09:25→20:32)
[2016-12-02 16:00] VITALS: BP 122/74
[2016-12-03 06:10] VITALS: BP 111/64
[2016-12-03] MEDS: OXYBUTYNIN CHLORIDE 5 MG TABLET PO SCH ×2 (08:25→16:47)
[2016-12-03] MEDS: OLANZapine 10 MG TABLET PO SCH ×2 (08:25→21:36)
[2016-12-03 08:42] VITALS: BP 109/60
[2016-12-03 08:57] LABS: ADD UA MICROSCOPIC NO; APPEARANCE,URINE CLEAR (CLEAR); GLUCOSE, URINE (UA) NEGATIVE (NEGATIVE); KETONES,URINE NEGATIVE (NEGATIVE); LEUKOCYTE ESTERASE ,URINE NEGATIVE (NEGATIVE); OCCULT BLOOD,URINE NEGATIVE (NEGATIVE); PROTEIN,URINE NEGATIVE (NEGATIVE)
[2016-12-03 09:20] LABS: ALANINE AMINOTRANSFERASE 19 U/L (12-78); ALBUMIN 3.9 g/dL (3.4-5.0); ANION GAP 6 mmol/L (8-16); ASPARTATE AMINOTRANSFERASE 25 U/L (15-37); BILIRUBIN,TOTAL 0.6 mg/dL (0.1-1.0); CALCIUM, TOTAL 9.1 mg/dL (8.8-10.5); CARBON DIOXIDE 32 mmol/L (22-29); CHLORIDE 105 mmol/L (98-107); CREATININE 0.93 mg/dL (0.60-1.30); GLOMERULAR FILTR. RATE CALC > 60 mL/min (>60); POTASSIUM 3.7 mmol/L (3.5-5.1); SODIUM SERUM 143 mmol/L (136-145); TOTAL PROTEIN, SERUM 8.3 g/dL (6.4-8.2); UREA NITROGEN, BLOOD 13 mg/dL (7-18)
[2016-12-03 16:00] VITALS: BP 138/68
[2016-12-04 06:04] VITALS: BP 129/69
[2016-12-04] MEDS: OLANZapine 10 MG TABLET PO SCH ×2 (08:03→20:10)
[2016-12-04] MEDS: OXYBUTYNIN CHLORIDE 5 MG TABLET PO SCH ×2 (08:03→16:26)
[2016-12-04 08:28] VITALS: BP 102/60
[2016-12-04 16:04] VITALS: BP 135/78
[2016-12-05 06:12] VITALS: BP 116/77
[2016-12-05 08:05] VITALS: BP 128/73
[2016-12-05] MEDS: OLANZapine 10 MG TABLET PO SCH ×2 (09:11→20:17)
[2016-12-05] MEDS: OXYBUTYNIN CHLORIDE 5 MG TABLET PO SCH ×2 (09:11→17:04)
[2016-12-05] MEDS: ACETAMINOPHEN 325 MG TABLET PO PRN (14:02)
[2016-12-05 16:00] VITALS: BP 139/81
[2016-12-05] MEDS: LORazepam 2 MG TABLET PO PRN (17:04)
[2016-12-06 06:34] VITALS: BP 132/82
[2016-12-06] MEDS: OXYBUTYNIN CHLORIDE 5 MG TABLET PO SCH ×2 (08:34→16:59)
[2016-12-06] MEDS: OLANZapine 10 MG TABLET PO SCH ×2 (08:34→20:33)
[2016-12-06 08:37] VITALS: BP 134/84
[2016-12-06 16:00] VITALS: BP 130/69
[2016-12-06] MEDS: LORazepam 2 MG TABLET PO PRN (17:00)
[2016-12-07 03:18] VITALS: BP 132/82
[2016-12-07 08:00] VITALS: BP 140/78
[2016-12-07] MEDS: OLANZapine 10 MG TABLET PO SCH ×2 (08:58→20:22)
[2016-12-07] MEDS: OXYBUTYNIN CHLORIDE 5 MG TABLET PO SCH ×2 (08:58→17:14)
[2016-12-07] MEDS: LORazepam 2 MG TABLET PO PRN ×2 (08:58→17:13)
[2016-12-07 16:00] VITALS: BP 132/77
[2016-12-07] MEDS: ZOLPIDEM TARTRATE 10 MG TABLET PO PRN (20:21)
[2016-12-08] MEDS: LORazepam 2 MG TABLET PO PRN ×4 (07:04→20:10)
[2016-12-08 07:06] VITALS: BP 148/74
[2016-12-08 08:31] VITALS: BP 136/72
[2016-12-08] MEDS: OXYBUTYNIN CHLORIDE 5 MG TABLET PO SCH ×2 (09:25→16:15)
[2016-12-08] MEDS: OLANZapine 10 MG TABLET PO SCH ×2 (09:25→20:10)
[2016-12-08] MEDS: ACETAMINOPHEN 325 MG TABLET PO PRN (13:56)
[2016-12-08] MEDS: HALOPERIDOL 5 MG TABLET PO PRN ×2 (13:56→16:15)
[2016-12-08 16:10] VITALS: BP 155/90
[2016-12-08] MEDS: CloNIDine HCL 0.1 MG TABLET PO PRN (16:15)
[2016-12-08 17:10] VITALS: BP 145/87
[2016-12-09] MEDS: OXYBUTYNIN CHLORIDE 5 MG TABLET PO SCH ×2 (09:18→16:20)
[2016-12-09] MEDS: OLANZapine 10 MG TABLET PO SCH ×2 (09:18→20:26)
[2016-12-09] MEDS: LORazepam 2 MG TABLET PO PRN ×2 (09:18→16:20)
[2016-12-09 14:21] VITALS: BP 138/82
[2016-12-09 16:18] VITALS: BP 152/94
[2016-12-09] MEDS: CloNIDine HCL 0.1 MG TABLET PO PRN (16:20)
[2016-12-09 17:20] VITALS: BP 100/59
[2016-12-10] VITALS (9 sets, daily range): BP systolic 98–163; BP diastolic 58–79
[2016-12-10] MEDS: OXYBUTYNIN CHLORIDE 5 MG TABLET PO SCH ×2 (08:30→18:19)
[2016-12-10] MEDS: OLANZapine 10 MG TABLET PO SCH ×2 (08:30→20:03)
[2016-12-10] MEDS ORDERED: ACET-2902 PO (13:42)
[2016-12-10] MEDS ORDERED: ZOLP10TA6 PO (13:42)
[2016-12-10] MEDS ORDERED: [UNRECOGNIZED DRUG - CODE] PO (13:42)
[2016-12-10] MEDS ORDERED: LORA2TAB80 PO (13:42)
[2016-12-10] MEDS ORDERED: HALO5TAB23 PO (13:42)
[2016-12-10] MEDS ORDERED: LOPE1LIQ97 PO (13:42)
[2016-12-10] MEDS ORDERED: OXYB5TAB27 PO (13:42)
[2016-12-10] MEDS ORDERED: CLON0.1T PO (13:42)
[2016-12-11 07:03] VITALS: BP 128/59
[2016-12-11 08:18] VITALS: BP 132/77
[2016-12-11] MEDS: OXYBUTYNIN CHLORIDE 5 MG TABLET PO SCH ×2 (08:30→16:56)
[2016-12-11] MEDS: OLANZapine 10 MG TABLET PO SCH ×2 (08:30→20:14)
[2016-12-11 16:00] VITALS: BP 122/73
[2016-12-12 06:57] VITALS: BP 129/65
[2016-12-12 08:30] VITALS: BP 130/81
[2016-12-12] MEDS: OLANZapine 10 MG TABLET PO SCH ×2 (09:11→20:34)
[2016-12-12] MEDS: OXYBUTYNIN CHLORIDE 5 MG TABLET PO SCH ×2 (09:11→16:35)
[2016-12-12] MEDS: LORazepam 2 MG TABLET PO PRN (09:11)
[2016-12-12] MEDS: HALOPERIDOL 5 MG TABLET PO PRN (09:11)
[2016-12-12] MEDS: ACETAMINOPHEN 325 MG TABLET PO PRN (09:46)
[2016-12-12 16:00] VITALS: BP 136/77
[2016-12-13 06:21] VITALS: BP 143/88
[2016-12-13 08:13] LABS: BASOPHILS % (AUTO) 0.3 % (0.0-2.0); EOSINOPHILS % (AUTO) 4.6 % (1.0-6.0); HEMATOCRIT 42.8 % (41-53); HEMOGLOBIN 14.3 g/dL (13.5-17.5); LYMPHOCYTES # (AUTO) 1.4 K/uL (1.0-4.8); LYMPHOCYTES % (AUTO) 24.4 % (22.0-44.0); MEAN CORPUSCULAR HEMOGLOBIN 30.2 pg (26.0-34.0); MEAN CORPUSCULAR HGB CONC 33.5 G/dL (31.0-37.0); MEAN CORPUSCULAR VOLUME 90 fL (80-100); MONOCYTES # (AUTO) 0.5 K/uL (0.1-1.0); MONOCYTES % (AUTO) 9.4 % (2.0-9.0); NEUTROPHILS # (AUTO) 3.4 K/uL (1.8-7.7); NEUTROPHILS % (AUTO) 61.3 % (40.0-70.0); PLATELET COUNT (AUTO) 168 K/uL (150-450); RED BLOOD CELL COUNT(AUTO) 4.74 MIL/uL (4.50-5.90); RED CELL DISTRIBUTION WIDTH 13.5 % (11.5-14.5); WHITE BLOOD COUNT (AUTO) 5.5 K/uL (4.5-11.0)
[2016-12-13 08:57] LABS: ALANINE AMINOTRANSFERASE 22 U/L (12-78); ANION GAP 4 mmol/L (8-16); ASPARTATE AMINOTRANSFERASE 27 U/L (15-37); BILIRUBIN,TOTAL 0.5 mg/dL (0.1-1.0); CALCIUM, TOTAL 9.6 mg/dL (8.8-10.5); CARBON DIOXIDE 34 mmol/L (22-29); CHLORIDE 102 mmol/L (98-107); CREATINE KINASE, TOTAL 296 U/L (39-308); CREATININE 0.98 mg/dL (0.60-1.30); GLOMERULAR FILTR. RATE CALC > 60 mL/min (>60); SODIUM SERUM 140 mmol/L (136-145); TOTAL PROTEIN, SERUM 8.6 g/dL (6.4-8.2); UREA NITROGEN, BLOOD 11 mg/dL (7-18)
[2016-12-13] MEDS: OXYBUTYNIN CHLORIDE 5 MG TABLET PO SCH ×2 (09:03→16:35)
[2016-12-13] MEDS: OLANZapine 10 MG TABLET PO SCH ×2 (09:03→20:04)
[2016-12-13 12:48] VITALS: BP 126/63
[2016-12-13 16:09] VITALS: BP 138/71
[2016-12-13] MEDS: MAG HYDROX/AL HYDROX/SIMETH ES 30 ML SUSPENSION UDCUP PO PRN (17:18)
[2016-12-14] MEDS: OLANZapine 10 MG TABLET PO SCH ×2 (08:05→20:30)
[2016-12-14] MEDS: OXYBUTYNIN CHLORIDE 5 MG TABLET PO SCH ×2 (08:05→16:01)
[2016-12-14 09:16] VITALS: BP 136/74
[2016-12-14 16:09] VITALS: BP 137/71
[2016-12-15 06:16] VITALS: BP 146/83
[2016-12-15] MEDS ORDERED: MAGNESIUM CITRATE 300 ML ORAL SOLUTION PO PRN (08:15)
[2016-12-15 08:46] VITALS: BP 128/72
[2016-12-15] MEDS: DOCUSATE SODIUM 250 MG CAPSULE PO SCH (09:17)
[2016-12-15] MEDS: OLANZapine 10 MG TABLET PO SCH ×2 (09:17→20:15)
[2016-12-15] MEDS: OXYBUTYNIN CHLORIDE 5 MG TABLET PO SCH ×2 (09:17→16:13)
[2016-12-15 16:00] VITALS: BP 135/68
[2016-12-15] MEDS: MAG HYDROX/AL HYDROX/SIMETH ES 30 ML SUSPENSION UDCUP PO PRN (21:35)
[2016-12-16] MEDS: LORazepam 2 MG TABLET PO PRN ×2 (05:29→14:29)
[2016-12-16 05:33] VITALS: BP 137/71
[2016-12-16 08:47] VITALS: BP 114/69
[2016-12-16] MEDS: DOCUSATE SODIUM 250 MG CAPSULE PO SCH (08:54)
[2016-12-16] MEDS: OLANZapine 10 MG TABLET PO SCH ×2 (08:54→20:27)
[2016-12-16] MEDS: OXYBUTYNIN CHLORIDE 5 MG TABLET PO SCH ×2 (08:54→17:06)
[2016-12-16 16:00] VITALS: BP 116/65
[2016-12-17] MEDS: LORazepam 2 MG TABLET PO PRN ×2 (00:48→08:31)
[2016-12-17] MEDS: ZOLPIDEM TARTRATE 10 MG TABLET PO PRN (00:48)
[2016-12-17 01:20] VITALS: BP 135/77
[2016-12-17] MEDS: HALOPERIDOL 5 MG TABLET PO PRN (04:13)
[2016-12-17 08:01] VITALS: BP 135/75
[2016-12-17] MEDS: OLANZapine 10 MG TABLET PO SCH ×2 (08:31→20:23)
[2016-12-17] MEDS: OXYBUTYNIN CHLORIDE 5 MG TABLET PO SCH ×2 (08:31→17:10)
[2016-12-17] MEDS: DOCUSATE SODIUM 250 MG CAPSULE PO SCH (08:31)
[2016-12-17 16:00] VITALS: BP 138/89
[2016-12-18 06:40] VITALS: BP 131/80
[2016-12-18 08:02] VITALS: BP 152/81
[2016-12-18] MEDS: DOCUSATE SODIUM 250 MG CAPSULE PO SCH (08:43)
[2016-12-18] MEDS: OLANZapine 10 MG TABLET PO SCH ×2 (08:43→20:20)
[2016-12-18] MEDS: OXYBUTYNIN CHLORIDE 5 MG TABLET PO SCH ×2 (08:43→16:02)
[2016-12-18 16:54] VITALS: BP 122/74
[2016-12-19 06:45] VITALS: BP 129/84
[2016-12-19 08:01] VITALS: BP 132/78
[2016-12-19] MEDS: OXYBUTYNIN CHLORIDE 5 MG TABLET PO SCH ×2 (08:50→16:13)
[2016-12-19] MEDS: DOCUSATE SODIUM 250 MG CAPSULE PO SCH (08:50)
[2016-12-19] MEDS: OLANZapine 10 MG TABLET PO SCH ×2 (08:50→20:10)
[2016-12-19 16:00] VITALS: BP 117/68
[2016-12-19] MEDS: MAG HYDROX/AL HYDROX/SIMETH ES 30 ML SUSPENSION UDCUP PO PRN (17:50)
[2016-12-20 06:59] VITALS: BP 121/76
[2016-12-20 08:01] VITALS: BP 140/74
[2016-12-20] MEDS: OXYBUTYNIN CHLORIDE 5 MG TABLET PO SCH ×2 (09:28→16:57)
[2016-12-20] MEDS: LORazepam 2 MG TABLET PO PRN (09:28)
[2016-12-20] MEDS: DOCUSATE SODIUM 250 MG CAPSULE PO SCH (09:28)
[2016-12-20] MEDS: OLANZapine 10 MG TABLET PO SCH ×2 (09:28→21:00)
[2016-12-20 16:00] VITALS: BP 142/77
[2016-12-21 06:15] VITALS: BP 122/77
[2016-12-21] MEDS: DOCUSATE SODIUM 250 MG CAPSULE PO SCH (08:24)
[2016-12-21] MEDS: OXYBUTYNIN CHLORIDE 5 MG TABLET PO SCH ×2 (08:25→16:00)
[2016-12-21] MEDS: OLANZapine 10 MG TABLET PO SCH ×2 (08:25→20:01)
[2016-12-21 09:17] VITALS: BP 153/50
[2016-12-21 16:02] VITALS: BP 132/89
[2016-12-21] MEDS: LORazepam 2 MG TABLET PO PRN (20:01)
[2016-12-22 08:10] VITALS: BP 140/77
[2016-12-22] MEDS: OXYBUTYNIN CHLORIDE 5 MG TABLET PO SCH ×2 (09:01→16:16)
[2016-12-22] MEDS: OLANZapine 10 MG TABLET PO SCH ×2 (09:01→20:23)
[2016-12-22] MEDS: SENNA 218 MG/5 ML SYRUP ORAL.SYG PO SCH (10:17)
[2016-12-22 16:08] VITALS: BP 146/86
[2016-12-22] MEDS: LORazepam 2 MG TABLET PO PRN (16:16)
[2016-12-23 08:15] VITALS: BP 141/75
[2016-12-23] MEDS: OLANZapine 10 MG TABLET PO SCH ×2 (09:17→20:17)
[2016-12-23] MEDS: SENNA 218 MG/5 ML SYRUP ORAL.SYG PO SCH (09:17)
[2016-12-23] MEDS: OXYBUTYNIN CHLORIDE 5 MG TABLET PO SCH ×2 (09:17→16:24)
[2016-12-23 16:04] VITALS: BP 126/75
[2016-12-24 06:10] VITALS: BP 122/62
[2016-12-24 08:15] VITALS: BP 138/77
[2016-12-24] MEDS: OLANZapine 10 MG TABLET PO SCH ×2 (08:58→20:30)
[2016-12-24] MEDS: OXYBUTYNIN CHLORIDE 5 MG TABLET PO SCH ×2 (08:58→16:03)
[2016-12-24] MEDS: SENNA 218 MG/5 ML SYRUP ORAL.SYG PO SCH (08:58)
[2016-12-24 11:12] VITALS: BP 132/78
[2016-12-24] MEDS ORDERED: TUBERCULIN, PURIFIED PROTEIN DERIVATIVE 5 TU/0.1 ML SYG ID ONE (13:00)
[2016-12-24] MEDS: LORazepam 2 MG TABLET PO PRN (15:58)
[2016-12-24 16:00] VITALS: BP 136/81
[2016-12-25 02:26] VITALS: BP 130/77
[2016-12-25 08:09] VITALS: BP 135/79
[2016-12-25] MEDS: OLANZapine 10 MG TABLET PO SCH ×2 (08:58→20:11)
[2016-12-25] MEDS: SENNA 218 MG/5 ML SYRUP ORAL.SYG PO SCH (08:58)
[2016-12-25] MEDS: OXYBUTYNIN CHLORIDE 5 MG TABLET PO SCH ×2 (08:58→16:20)
[2016-12-25 16:02] VITALS: BP 131/85
[2016-12-25] MEDS: LORazepam 2 MG TABLET PO PRN (16:20)
[2016-12-26 06:38] VITALS: BP 138/79
[2016-12-26 08:01] VITALS: BP 148/87
[2016-12-26] MEDS ORDERED: OXYB5 PO (08:43)
[2016-12-26] MEDS ORDERED: ZOLP10TA7 PO (08:43)
[2016-12-26] MEDS ORDERED: SENN8.8S12 PO (08:43)
[2016-12-26] MEDS ORDERED: LORA2TAB2 PO (08:43)
[2016-12-26 08:57] LABS: GLUCOSE,POINT OF CARE 129 MG/DL (70-110)
[2016-12-26] MEDS: OLANZapine 10 MG TABLET PO SCH ×3 (09:00→20:11)
[2016-12-26] MEDS: OXYBUTYNIN CHLORIDE 5 MG TABLET PO SCH ×3 (09:00→16:52)
[2016-12-26] MEDS: SENNA 218 MG/5 ML SYRUP ORAL.SYG PO SCH ×2 (09:00→12:14)
[2016-12-26] MEDS: LORazepam 2 MG TABLET PO PRN ×2 (12:15→20:11)
[2016-12-26 16:14] VITALS: BP 137/85
[2016-12-26] MEDS: LevETIRAcetam 500 MG TABLET PO SCH (16:52)
[2016-12-27 05:30] VITALS: BP 141/84
[2016-12-27 08:05] VITALS: BP 133/75
[2016-12-27] MEDS: OXYBUTYNIN CHLORIDE 5 MG TABLET PO SCH ×2 (08:09→16:07)
[2016-12-27] MEDS: OLANZapine 10 MG TABLET PO SCH ×2 (08:09→20:13)
[2016-12-27] MEDS: LevETIRAcetam 500 MG TABLET PO SCH ×2 (08:09→16:07)
[2016-12-27] MEDS: SENNA 218 MG/5 ML SYRUP ORAL.SYG PO SCH (09:00)
[2016-12-27 16:06] VITALS: BP 138/82
[2016-12-28 01:30] VITALS: BP 136/72
[2016-12-28] MEDS: OLANZapine 10 MG TABLET PO SCH ×2 (08:00→20:04)
[2016-12-28] MEDS: LevETIRAcetam 500 MG TABLET PO SCH ×2 (08:00→16:08)
[2016-12-28] MEDS: OXYBUTYNIN CHLORIDE 5 MG TABLET PO SCH ×2 (08:00→16:08)
[2016-12-28] MEDS: SENNA 218 MG/5 ML SYRUP ORAL.SYG PO SCH (08:02)
[2016-12-28 08:19] VITALS: BP 145/77
[2016-12-28 16:13] VITALS: BP 137/78
[2016-12-29 00:50] VITALS: BP 144/82
[2016-12-29] MEDS: LORazepam 2 MG TABLET PO PRN (00:52)
[2016-12-29] MEDS: ZOLPIDEM TARTRATE 10 MG TABLET PO PRN (00:52)
[2016-12-29 08:30] VITALS: BP 138/88
[2016-12-29] MEDS: LevETIRAcetam 500 MG TABLET PO SCH ×2 (09:21→16:33)
[2016-12-29] MEDS: OXYBUTYNIN CHLORIDE 5 MG TABLET PO SCH ×2 (09:21→16:33)
[2016-12-29] MEDS: OLANZapine 10 MG TABLET PO SCH ×2 (09:21→20:35)
[2016-12-29] MEDS: SENNA 218 MG/5 ML SYRUP ORAL.SYG PO SCH (09:22)
[2016-12-29 16:00] VITALS: BP 140/80
[2016-12-30 06:58] VITALS: BP 132/82
[2016-12-30 08:33] VITALS: BP 108/66
[2016-12-30] MEDS: LevETIRAcetam 500 MG TABLET PO SCH ×2 (08:51→16:48)
[2016-12-30] MEDS: SENNA 218 MG/5 ML SYRUP ORAL.SYG PO SCH (08:51)
[2016-12-30] MEDS: OXYBUTYNIN CHLORIDE 5 MG TABLET PO SCH ×2 (08:51→16:48)
[2016-12-30] MEDS: OLANZapine 10 MG TABLET PO SCH ×2 (08:52→20:26)
[2016-12-30 16:00] VITALS: BP 130/71
[2016-12-31 04:38] VITALS: BP 134/79
[2016-12-31 08:24] VITALS: BP 138/88
[2016-12-31] MEDS: SENNA 218 MG/5 ML SYRUP ORAL.SYG PO SCH (08:37)
[2016-12-31] MEDS: OXYBUTYNIN CHLORIDE 5 MG TABLET PO SCH ×2 (08:37→16:48)
[2016-12-31] MEDS: OLANZapine 10 MG TABLET PO SCH ×2 (08:37→20:10)
[2016-12-31] MEDS: LevETIRAcetam 500 MG TABLET PO SCH ×2 (08:37→16:48)
[2016-12-31 16:03] VITALS: BP 140/78
[2017-01-01 06:50] VITALS: BP 129/75
[2017-01-01 08:00] VITALS: BP 143/80
[2017-01-01] MEDS: LevETIRAcetam 500 MG TABLET PO SCH ×2 (08:38→16:17)
[2017-01-01] MEDS: OLANZapine 10 MG TABLET PO SCH ×2 (08:38→20:37)
[2017-01-01] MEDS: OXYBUTYNIN CHLORIDE 5 MG TABLET PO SCH ×2 (08:40→16:17)
[2017-01-01] MEDS: SENNA 218 MG/5 ML SYRUP ORAL.SYG PO SCH (09:00)
[2017-01-01 16:00] VITALS: BP 138/84
[2017-01-02 06:29] VITALS: BP 138/73
[2017-01-02 08:00] VITALS: BP 138/62
[2017-01-02] MEDS: OLANZapine 10 MG TABLET PO SCH ×2 (08:41→20:09)
[2017-01-02] MEDS: OXYBUTYNIN CHLORIDE 5 MG TABLET PO SCH ×2 (08:42→16:16)
[2017-01-02] MEDS: SENNA 218 MG/5 ML SYRUP ORAL.SYG PO SCH (08:42)
[2017-01-02] MEDS: LevETIRAcetam 500 MG TABLET PO SCH ×2 (08:42→16:16)
[2017-01-02] MEDS: CLOTRIMAZOLE 1% 15 GM CREAM TP SCH ×2 (08:42→16:16)
[2017-01-02 16:00] VITALS: BP 142/89
[2017-01-03 06:16] VITALS: BP 136/94
[2017-01-03 07:54] VITALS: BP 136/79
[2017-01-03] MEDS: OXYBUTYNIN CHLORIDE 5 MG TABLET PO SCH ×2 (08:07→16:27)
[2017-01-03] MEDS: LevETIRAcetam 500 MG TABLET PO SCH ×2 (08:07→16:27)
[2017-01-03] MEDS: SENNA 218 MG/5 ML SYRUP ORAL.SYG PO SCH (08:08)
[2017-01-03 08:09] VITALS: BP 136/79
[2017-01-03] MEDS: CLOTRIMAZOLE 1% 15 GM CREAM TP SCH ×2 (09:25→16:28)
[2017-01-03] MEDS: OLANZapine 10 MG TABLET PO SCH ×2 (09:25→20:07)
[2017-01-03 16:03] VITALS: BP 142/64
[2017-01-04 05:57] VITALS: BP 141/72
[2017-01-04 08:00] VITALS: BP 128/78
[2017-01-04] MEDS: SENNA 218 MG/5 ML SYRUP ORAL.SYG PO SCH (08:40)
[2017-01-04] MEDS: OLANZapine 10 MG TABLET PO SCH ×2 (08:40→20:05)
[2017-01-04] MEDS: LevETIRAcetam 500 MG TABLET PO SCH ×2 (08:40→16:28)
[2017-01-04] MEDS: OXYBUTYNIN CHLORIDE 5 MG TABLET PO SCH ×2 (08:40→16:28)
[2017-01-04] MEDS: CLOTRIMAZOLE 1% 15 GM CREAM TP SCH ×2 (09:14→16:29)
[2017-01-04 16:09] VITALS: BP 114/64
[2017-01-05 08:48] VITALS: BP 119/76
[2017-01-05] MEDS: OXYBUTYNIN CHLORIDE 5 MG TABLET PO SCH ×2 (08:53→16:16)
[2017-01-05] MEDS: OLANZapine 10 MG TABLET PO SCH ×2 (08:53→20:39)
[2017-01-05] MEDS: LevETIRAcetam 500 MG TABLET PO SCH ×2 (08:53→16:16)
[2017-01-05] MEDS: SENNA 218 MG/5 ML SYRUP ORAL.SYG PO SCH (08:54)
[2017-01-05] MEDS: CLOTRIMAZOLE 1% 15 GM CREAM TP SCH ×2 (10:12→16:16)
[2017-01-05 16:00] VITALS: BP 126/76
[2017-01-06 05:50] VITALS: BP 133/81
[2017-01-06 08:00] VITALS: BP 135/79
[2017-01-06] MEDS: SENNA 218 MG/5 ML SYRUP ORAL.SYG PO SCH (09:04)
[2017-01-06] MEDS: OXYBUTYNIN CHLORIDE 5 MG TABLET PO SCH ×2 (09:04→17:30)
[2017-01-06] MEDS: OLANZapine 10 MG TABLET PO SCH ×2 (09:04→20:55)
[2017-01-06] MEDS: CLOTRIMAZOLE 1% 15 GM CREAM TP SCH ×2 (09:04→17:30)
[2017-01-06] MEDS: LevETIRAcetam 500 MG TABLET PO SCH ×2 (09:04→17:30)
[2017-01-06 16:00] VITALS: BP 129/82
[2017-01-06] MEDS: ACETAMINOPHEN 325 MG TABLET PO PRN (19:28)
[2017-01-07] MEDS: HALOPERIDOL 5 MG TABLET PO PRN (04:04)
[2017-01-07 04:06] VITALS: BP 143/92
[2017-01-07] MEDS: LevETIRAcetam 500 MG TABLET PO SCH ×2 (08:22→16:09)
[2017-01-07] MEDS: SENNA 218 MG/5 ML SYRUP ORAL.SYG PO SCH (08:22)
[2017-01-07] MEDS: OLANZapine 10 MG TABLET PO SCH ×2 (08:22→20:26)
[2017-01-07] MEDS: OXYBUTYNIN CHLORIDE 5 MG TABLET PO SCH ×2 (08:22→16:09)
[2017-01-07] MEDS: CLOTRIMAZOLE 1% 15 GM CREAM TP SCH ×2 (08:23→16:09)
[2017-01-07 08:31] VITALS: BP 145/78
[2017-01-07 16:08] VITALS: BP 133/76
[2017-01-08 05:43] VITALS: BP 143/70
[2017-01-08 08:00] VITALS: BP 142/89
[2017-01-08] MEDS: SENNA 218 MG/5 ML SYRUP ORAL.SYG PO SCH (08:26)
[2017-01-08] MEDS: LevETIRAcetam 500 MG TABLET PO SCH ×2 (08:26→16:11)
[2017-01-08] MEDS: OXYBUTYNIN CHLORIDE 5 MG TABLET PO SCH ×2 (08:26→16:11)
[2017-01-08] MEDS: CLOTRIMAZOLE 1% 15 GM CREAM TP SCH ×2 (08:27→16:11)
[2017-01-08] MEDS: OLANZapine 10 MG TABLET PO SCH ×2 (08:27→20:39)
[2017-01-08 16:00] VITALS: BP 152/80
[2017-01-09 08:35] VITALS: BP 134/72
[2017-01-09] MEDS: OXYBUTYNIN CHLORIDE 5 MG TABLET PO SCH ×2 (08:50→16:56)
[2017-01-09] MEDS: LevETIRAcetam 500 MG TABLET PO SCH ×2 (08:50→16:56)
[2017-01-09] MEDS: OLANZapine 10 MG TABLET PO SCH ×2 (08:50→20:10)
[2017-01-09] MEDS: CLOTRIMAZOLE 1% 15 GM CREAM TP SCH ×2 (08:51→16:57)
[2017-01-09] MEDS: SENNA 218 MG/5 ML SYRUP ORAL.SYG PO SCH (08:51)
[2017-01-09 16:00] VITALS: BP 133/70
[2017-01-10 01:43] VITALS: BP 135/71
[2017-01-10] MEDS: OLANZapine 10 MG TABLET PO SCH ×2 (08:31→20:58)
[2017-01-10] MEDS: LevETIRAcetam 500 MG TABLET PO SCH ×2 (08:31→16:16)
[2017-01-10] MEDS: OXYBUTYNIN CHLORIDE 5 MG TABLET PO SCH ×2 (08:31→16:16)
[2017-01-10] MEDS: SENNA 218 MG/5 ML SYRUP ORAL.SYG PO SCH (08:32)
[2017-01-10] MEDS: CLOTRIMAZOLE 1% 15 GM CREAM TP SCH ×2 (08:32→16:16)
[2017-01-10 08:58] VITALS: BP 140/70
[2017-01-10 16:21] VITALS: BP 135/78
[2017-01-11 06:29] VITALS: BP 115/67
[2017-01-11 08:00] VITALS: BP 136/80
[2017-01-11] MEDS: OXYBUTYNIN CHLORIDE 5 MG TABLET PO SCH ×2 (08:46→16:49)
[2017-01-11] MEDS: LevETIRAcetam 500 MG TABLET PO SCH ×2 (08:46→16:49)
[2017-01-11] MEDS: OLANZapine 10 MG TABLET PO SCH ×2 (08:46→20:35)
[2017-01-11] MEDS: SENNA 218 MG/5 ML SYRUP ORAL.SYG PO SCH (08:46)
[2017-01-11] MEDS: CLOTRIMAZOLE 1% 15 GM CREAM TP SCH ×2 (08:48→16:49)
[2017-01-11 16:01] VITALS: BP 138/71
[2017-01-12 06:32] VITALS: BP 128/69
[2017-01-12 08:35] VITALS: BP 129/70
[2017-01-12] MEDS: OXYBUTYNIN CHLORIDE 5 MG TABLET PO SCH ×2 (09:47→16:46)
[2017-01-12] MEDS: CLOTRIMAZOLE 1% 15 GM CREAM TP SCH ×2 (09:48→16:46)
[2017-01-12] MEDS: SENNA 218 MG/5 ML SYRUP ORAL.SYG PO SCH (09:48)
[2017-01-12] MEDS: OLANZapine 10 MG TABLET PO SCH ×2 (09:48→20:31)
[2017-01-12] MEDS: LevETIRAcetam 500 MG TABLET PO SCH ×2 (09:48→16:46)
[2017-01-12 16:05] VITALS: BP 142/82
[2017-01-13 06:01] VITALS: BP 133/85
[2017-01-13 08:14] VITALS: BP 141/77
[2017-01-13] MEDS: OXYBUTYNIN CHLORIDE 5 MG TABLET PO SCH ×2 (08:53→16:15)
[2017-01-13] MEDS: HALOPERIDOL 5 MG TABLET PO PRN (08:53)
[2017-01-13] MEDS: LevETIRAcetam 500 MG TABLET PO SCH ×2 (08:53→16:15)
[2017-01-13] MEDS: SENNA 218 MG/5 ML SYRUP ORAL.SYG PO SCH (08:53)
[2017-01-13] MEDS: OLANZapine 10 MG TABLET PO SCH ×2 (08:53→20:09)
[2017-01-13] MEDS: CLOTRIMAZOLE 1% 15 GM CREAM TP SCH ×2 (08:56→16:15)
[2017-01-13 16:00] VITALS: BP 143/86
[2017-01-14 06:34] VITALS: BP 140/80
[2017-01-14] MEDS: OXYBUTYNIN CHLORIDE 5 MG TABLET PO SCH ×2 (09:00→17:04)
[2017-01-14 09:07] VITALS: BP 139/78
[2017-01-14] MEDS: LevETIRAcetam 500 MG TABLET PO SCH ×2 (09:38→17:04)
[2017-01-14] MEDS: OLANZapine 10 MG TABLET PO SCH ×2 (09:39→20:51)
[2017-01-14] MEDS: CLOTRIMAZOLE 1% 15 GM CREAM TP SCH ×2 (09:39→17:04)
[2017-01-14] MEDS: SENNA 218 MG/5 ML SYRUP ORAL.SYG PO SCH (10:28)
[2017-01-14 16:09] VITALS: BP 124/72
[2017-01-15 06:11] VITALS: BP 126/66
[2017-01-15 08:17] VITALS: BP 137/64
[2017-01-15] MEDS: SENNA 218 MG/5 ML SYRUP ORAL.SYG PO SCH (08:42)
[2017-01-15] MEDS: LevETIRAcetam 500 MG TABLET PO SCH ×2 (08:43→16:42)
[2017-01-15] MEDS: OLANZapine 10 MG TABLET PO SCH ×2 (08:43→20:43)
[2017-01-15] MEDS: OXYBUTYNIN CHLORIDE 5 MG TABLET PO SCH ×2 (08:43→16:42)
[2017-01-15] MEDS: CLOTRIMAZOLE 1% 15 GM CREAM TP SCH ×2 (08:44→16:40)
[2017-01-15 16:20] VITALS: BP 120/73
[2017-01-16 06:10] VITALS: BP 124/64
[2017-01-16] MEDS: LevETIRAcetam 500 MG TABLET PO SCH ×2 (08:53→16:23)
[2017-01-16] MEDS: OLANZapine 10 MG TABLET PO SCH ×2 (08:53→20:43)
[2017-01-16] MEDS: OXYBUTYNIN CHLORIDE 5 MG TABLET PO SCH ×2 (08:53→16:23)
[2017-01-16 08:54] VITALS: BP 147/85
[2017-01-16] MEDS: SENNA 218 MG/5 ML SYRUP ORAL.SYG PO SCH (08:54)
[2017-01-16 16:23] VITALS: BP 142/82
[2017-01-16] MEDS: HALOPERIDOL 5 MG TABLET PO PRN (17:43)
[2017-01-17 06:29] VITALS: BP 140/86
[2017-01-17] MEDS: OXYBUTYNIN CHLORIDE 5 MG TABLET PO SCH ×2 (08:24→16:53)
[2017-01-17] MEDS: LevETIRAcetam 500 MG TABLET PO SCH ×2 (08:25→16:53)
[2017-01-17] MEDS: OLANZapine 10 MG TABLET PO SCH ×2 (08:25→20:55)
[2017-01-17] MEDS: SENNA 218 MG/5 ML SYRUP ORAL.SYG PO SCH (08:25)
[2017-01-17 08:50] VITALS: BP 123/88
[2017-01-17 16:35] VITALS: BP 140/66
[2017-01-18 07:13] VITALS: BP 140/89
[2017-01-18] MEDS: OXYBUTYNIN CHLORIDE 5 MG TABLET PO SCH ×2 (08:15→16:26)
[2017-01-18] MEDS: LevETIRAcetam 500 MG TABLET PO SCH ×2 (08:15→16:26)
[2017-01-18] MEDS: OLANZapine 10 MG TABLET PO SCH ×2 (08:16→20:21)
[2017-01-18] MEDS: SENNA 218 MG/5 ML SYRUP ORAL.SYG PO SCH (08:17)
[2017-01-18 08:56] VITALS: BP 130/70
[2017-01-18] MEDS: HALOPERIDOL 5 MG TABLET PO PRN (14:15)
[2017-01-18 16:41] VITALS: BP 110/79
[2017-01-19 06:42] VITALS: BP 128/62
[2017-01-19 09:15] VITALS: BP 131/78
[2017-01-19] MEDS: LevETIRAcetam 500 MG TABLET PO SCH ×2 (09:59→16:25)
[2017-01-19] MEDS: OXYBUTYNIN CHLORIDE 5 MG TABLET PO SCH ×2 (09:59→16:25)
[2017-01-19] MEDS: OLANZapine 10 MG TABLET PO SCH ×2 (10:00→20:46)
[2017-01-19] MEDS: SENNA 218 MG/5 ML SYRUP ORAL.SYG PO SCH (10:00)
[2017-01-19 16:00] VITALS: BP 132/84
[2017-01-20 06:53] VITALS: BP 144/87
[2017-01-20] MEDS: SENNA 218 MG/5 ML SYRUP ORAL.SYG PO SCH (08:53)
[2017-01-20] MEDS: OXYBUTYNIN CHLORIDE 5 MG TABLET PO SCH ×2 (08:53→16:58)
[2017-01-20] MEDS: OLANZapine 10 MG TABLET PO SCH ×2 (08:53→20:58)
[2017-01-20] MEDS: LevETIRAcetam 500 MG TABLET PO SCH ×2 (08:53→16:58)
[2017-01-20 09:19] VITALS: BP 124/71
[2017-01-20 17:00] VITALS: BP 125/75
[2017-01-21 03:37] VITALS: BP 143/90
[2017-01-21] MEDS: LevETIRAcetam 500 MG TABLET PO SCH ×2 (08:41→17:03)
[2017-01-21] MEDS: OLANZapine 10 MG TABLET PO SCH ×2 (08:41→21:08)
[2017-01-21] MEDS: OXYBUTYNIN CHLORIDE 5 MG TABLET PO SCH ×2 (08:41→17:03)
[2017-01-21 09:43] VITALS: BP 127/91
[2017-01-21] MEDS: SENNA 218 MG/5 ML SYRUP ORAL.SYG PO SCH (12:27)
[2017-01-21] MEDS: HALOPERIDOL 5 MG TABLET PO PRN (12:34)
[2017-01-21 16:29] VITALS: BP 133/75
[2017-01-22 06:05] VITALS: BP 121/87
[2017-01-22 08:01] VITALS: BP 131/71
[2017-01-22] MEDS: SENNA 218 MG/5 ML SYRUP ORAL.SYG PO SCH (08:44)
[2017-01-22] MEDS: OLANZapine 10 MG TABLET PO SCH ×2 (08:44→21:03)
[2017-01-22] MEDS: OXYBUTYNIN CHLORIDE 5 MG TABLET PO SCH ×2 (08:44→16:32)
[2017-01-22] MEDS: LevETIRAcetam 500 MG TABLET PO SCH ×2 (08:44→16:32)
[2017-01-22 16:24] VITALS: BP 129/77
[2017-01-23 06:24] VITALS: BP 124/78
[2017-01-23] MEDS: OLANZapine 10 MG TABLET PO SCH ×2 (08:38→20:21)
[2017-01-23] MEDS: OXYBUTYNIN CHLORIDE 5 MG TABLET PO SCH ×2 (08:38→16:32)
[2017-01-23] MEDS: LevETIRAcetam 500 MG TABLET PO SCH ×2 (08:38→16:32)
[2017-01-23] MEDS: SENNA 218 MG/5 ML SYRUP ORAL.SYG PO SCH (08:39)
[2017-01-23 09:59] VITALS: BP 152/86
[2017-01-23 16:45] VITALS: BP 137/65
[2017-01-24 06:43] VITALS: BP 143/84
[2017-01-24 08:16] VITALS: BP 152/101
[2017-01-24] MEDS: SENNA 218 MG/5 ML SYRUP ORAL.SYG PO SCH (09:12)
[2017-01-24] MEDS: OXYBUTYNIN CHLORIDE 5 MG TABLET PO SCH ×2 (09:13→16:58)
[2017-01-24] MEDS: LevETIRAcetam 500 MG TABLET PO SCH ×2 (09:13→16:58)
[2017-01-24] MEDS: OLANZapine 10 MG TABLET PO SCH ×2 (09:13→20:31)
[2017-01-24 16:32] VITALS: BP 131/53
[2017-01-25 06:45] VITALS: BP 123/90
[2017-01-25] MEDS: LevETIRAcetam 500 MG TABLET PO SCH ×2 (08:46→16:43)
[2017-01-25] MEDS: SENNA 218 MG/5 ML SYRUP ORAL.SYG PO SCH (08:46)
[2017-01-25] MEDS: OXYBUTYNIN CHLORIDE 5 MG TABLET PO SCH ×2 (08:46→16:43)
[2017-01-25] MEDS: OLANZapine 10 MG TABLET PO SCH ×2 (08:46→20:49)
[2017-01-25 09:06] VITALS: BP 139/60
[2017-01-25] MEDS: DIVALPROEX SODIUM 500 MG ER TABLET PO SCH (16:43)
[2017-01-25 16:47] VITALS: BP 128/76
[2017-01-26 06:55] VITALS: BP 135/62
[2017-01-26 08:16] VITALS: BP 134/79
[2017-01-26] MEDS: DIVALPROEX SODIUM 500 MG ER TABLET PO SCH ×2 (08:49→16:28)
[2017-01-26] MEDS: OXYBUTYNIN CHLORIDE 5 MG TABLET PO SCH ×2 (08:49→16:28)
[2017-01-26] MEDS: LevETIRAcetam 500 MG TABLET PO SCH ×2 (08:49→16:28)
[2017-01-26] MEDS: OLANZapine 10 MG TABLET PO SCH ×2 (08:49→20:40)
[2017-01-26] MEDS: SENNA 218 MG/5 ML SYRUP ORAL.SYG PO SCH (08:49)
[2017-01-26 09:17] VITALS: BP 134/79
[2017-01-26 16:34] VITALS: BP 132/73
[2017-01-27 06:11] VITALS: BP 137/68
[2017-01-27] MEDS: OLANZapine 10 MG TABLET PO SCH ×2 (09:00→21:24)
[2017-01-27] MEDS: DIVALPROEX SODIUM 500 MG ER TABLET PO SCH ×2 (09:00→17:01)
[2017-01-27] MEDS: SENNA 218 MG/5 ML SYRUP ORAL.SYG PO SCH (09:00)
[2017-01-27] MEDS: LevETIRAcetam 500 MG TABLET PO SCH ×2 (09:00→17:01)
[2017-01-27] MEDS: OXYBUTYNIN CHLORIDE 5 MG TABLET PO SCH ×2 (09:00→17:01)
[2017-01-27 10:36] VITALS: BP 133/77
[2017-01-27 16:45] VITALS: BP 132/81
[2017-01-28 07:11] VITALS: BP 138/82
[2017-01-28 08:34] VITALS: BP 122/61
[2017-01-28] MEDS: LevETIRAcetam 500 MG TABLET PO SCH ×2 (09:53→17:26)
[2017-01-28] MEDS: OXYBUTYNIN CHLORIDE 5 MG TABLET PO SCH ×2 (09:53→17:26)
[2017-01-28] MEDS: OLANZapine 10 MG TABLET PO SCH ×2 (09:53→21:06)
[2017-01-28] MEDS: DIVALPROEX SODIUM 500 MG ER TABLET PO SCH ×2 (09:53→17:26)
[2017-01-28] MEDS: SENNA 218 MG/5 ML SYRUP ORAL.SYG PO SCH (09:54)
[2017-01-28 12:00] VITALS: BP 126/70
[2017-01-28] MEDS: ACETAMINOPHEN 325 MG TABLET PO PRN (12:08)
[2017-01-28 16:00] VITALS: BP 143/84
[2017-01-29 06:07] VITALS: BP 128/66
[2017-01-29 08:15] LABS: HEMATOCRIT 40.7 % (41-53); HEMOGLOBIN 13.6 g/dL (13.5-17.5); MEAN CORPUSCULAR HEMOGLOBIN 30.2 pg (26.0-34.0); MEAN CORPUSCULAR HGB CONC 33.5 G/dL (31.0-37.0); MEAN CORPUSCULAR VOLUME 90 fL (80-100); PLATELET COUNT (AUTO) 180 K/uL (150-450); RED BLOOD CELL COUNT(AUTO) 4.51 MIL/uL (4.50-5.90); RED CELL DISTRIBUTION WIDTH 13.8 % (11.5-14.5); WHITE BLOOD COUNT (AUTO) 4.4 K/uL (4.5-11.0)
[2017-01-29 08:20] VITALS: BP 109/64
[2017-01-29] MEDS: SENNA 218 MG/5 ML SYRUP ORAL.SYG PO SCH (08:34)
[2017-01-29] MEDS: LevETIRAcetam 500 MG TABLET PO SCH ×2 (08:34→17:14)
[2017-01-29] MEDS: DIVALPROEX SODIUM 500 MG ER TABLET PO SCH ×2 (08:34→17:14)
[2017-01-29] MEDS: OXYBUTYNIN CHLORIDE 5 MG TABLET PO SCH ×2 (08:35→17:14)
[2017-01-29] MEDS: OLANZapine 10 MG TABLET PO SCH ×2 (08:35→20:46)
[2017-01-29 08:46] LABS: ALANINE AMINOTRANSFERASE 16 U/L (12-78); ALBUMIN 3.7 g/dL (3.4-5.0); ANION GAP 7 mmol/L (8-16); ASPARTATE AMINOTRANSFERASE 21 U/L (15-37); BILIRUBIN,TOTAL 0.5 mg/dL (0.1-1.0); CALCIUM, TOTAL 8.9 mg/dL (8.8-10.5); CARBON DIOXIDE 31 mmol/L (22-29); CHLORIDE 105 mmol/L (98-107); CREATININE 0.89 mg/dL (0.60-1.30); GLOMERULAR FILTR. RATE CALC > 60 mL/min (>60); POTASSIUM 4.1 mmol/L (3.5-5.1); SODIUM SERUM 143 mmol/L (136-145); TOTAL PROTEIN, SERUM 8.3 g/dL (6.4-8.2); UREA NITROGEN, BLOOD 14 mg/dL (7-18); VALPROIC ACID 48 mcg/mL (50-100)
[2017-01-29 10:41] LABS: BASOPHILS % (MANUAL) 2 % (0-2); LYMPHOCYTES % (MANUAL) 37 % (22-44); TOTAL CELLS COUNTED 100
[2017-01-29 10:42] LABS: RBC MORPHOLOGY COMMENT NORMAL RBC MORPH
[2017-01-29 10:45] VITALS: BP 120/70
[2017-01-29] MEDS: ACETAMINOPHEN 325 MG TABLET PO PRN (10:49)
[2017-01-29 16:30] VITALS: BP 138/85
[2017-01-30 07:24] VITALS: BP 123/86
[2017-01-30 09:10] VITALS: BP 109/67
[2017-01-30] MEDS: SENNA 218 MG/5 ML SYRUP ORAL.SYG PO SCH (10:08)
[2017-01-30] MEDS: DIVALPROEX SODIUM 500 MG ER TABLET PO SCH ×2 (10:09→17:18)
[2017-01-30] MEDS: OXYBUTYNIN CHLORIDE 5 MG TABLET PO SCH ×2 (10:09→17:18)
[2017-01-30] MEDS: LevETIRAcetam 500 MG TABLET PO SCH ×2 (10:09→17:18)
[2017-01-30] MEDS: OLANZapine 10 MG TABLET PO SCH ×2 (10:09→20:42)
[2017-01-30 16:12] VITALS: BP 144/82
[2017-01-31 06:54] VITALS: BP 139/89
[2017-01-31 08:02] VITALS: BP 134/79
[2017-01-31] MEDS: DIVALPROEX SODIUM 500 MG ER TABLET PO SCH ×2 (09:05→16:49)
[2017-01-31] MEDS: OLANZapine 10 MG TABLET PO SCH ×2 (09:05→21:13)
[2017-01-31] MEDS: LevETIRAcetam 500 MG TABLET PO SCH ×2 (09:06→16:49)
[2017-01-31] MEDS: OXYBUTYNIN CHLORIDE 5 MG TABLET PO SCH ×2 (09:06→16:48)
[2017-01-31] MEDS: SENNA 218 MG/5 ML SYRUP ORAL.SYG PO SCH (09:58)
[2017-01-31 17:56] VITALS: BP 131/76
[2017-01-31] MEDS: ACETAMINOPHEN 325 MG TABLET PO PRN (18:00)
[2017-02-01 03:26] VITALS: BP 142/63
[2017-02-01] MEDS: HALOPERIDOL 5 MG TABLET PO PRN (05:51)
[2017-02-01 08:30] VITALS: BP 104/65
[2017-02-01] MEDS: SENNA 218 MG/5 ML SYRUP ORAL.SYG PO SCH (09:18)
[2017-02-01] MEDS: DIVALPROEX SODIUM 500 MG ER TABLET PO SCH ×2 (09:19→16:28)
[2017-02-01] MEDS: OLANZapine 10 MG TABLET PO SCH ×2 (09:19→20:24)
[2017-02-01] MEDS: OXYBUTYNIN CHLORIDE 5 MG TABLET PO SCH ×2 (09:19→16:28)
[2017-02-01] MEDS: LevETIRAcetam 500 MG TABLET PO SCH ×2 (09:19→16:28)
[2017-02-01] MEDS: ACETAMINOPHEN 325 MG TABLET PO PRN (16:28)
[2017-02-02 03:25] VITALS: BP 135/79
[2017-02-02] MEDS: HALOPERIDOL 5 MG TABLET PO PRN (03:30)
[2017-02-02 08:52] VITALS: BP 140/61
[2017-02-02] MEDS: LevETIRAcetam 500 MG TABLET PO SCH ×2 (09:36→17:13)
[2017-02-02] MEDS: OLANZapine 10 MG TABLET PO SCH ×2 (09:36→20:50)
[2017-02-02] MEDS: OXYBUTYNIN CHLORIDE 5 MG TABLET PO SCH ×2 (09:36→17:13)
[2017-02-02] MEDS: DIVALPROEX SODIUM 500 MG ER TABLET PO SCH ×2 (09:36→16:19)
[2017-02-02] MEDS: SENNA 218 MG/5 ML SYRUP ORAL.SYG PO SCH (09:37)
[2017-02-02] MEDS: ACETAMINOPHEN 325 MG TABLET PO PRN (16:20)
[2017-02-02 16:51] VITALS: BP 113/70
[2017-02-03 06:45] VITALS: BP 111/64
[2017-02-03 08:17] VITALS: BP 126/72
[2017-02-03] MEDS: OXYBUTYNIN CHLORIDE 5 MG TABLET PO SCH ×2 (09:52→16:54)
[2017-02-03] MEDS: DIVALPROEX SODIUM 500 MG ER TABLET PO SCH ×2 (09:52→16:54)
[2017-02-03] MEDS: OLANZapine 10 MG TABLET PO SCH ×2 (09:53→20:54)
[2017-02-03] MEDS: SENNA 218 MG/5 ML SYRUP ORAL.SYG PO SCH (09:53)
[2017-02-03] MEDS: LevETIRAcetam 500 MG TABLET PO SCH ×2 (09:59→16:54)
[2017-02-03 16:00] VITALS: BP 138/90
[2017-02-04 02:36] VITALS: BP 139/70
[2017-02-04] MEDS: HALOPERIDOL 5 MG TABLET PO PRN (02:41)
[2017-02-04 08:44] VITALS: BP 146/60
[2017-02-04] MEDS: SENNA 218 MG/5 ML SYRUP ORAL.SYG PO SCH (08:54)
[2017-02-04] MEDS: OLANZapine 10 MG TABLET PO SCH ×2 (08:54→20:45)
[2017-02-04] MEDS: OXYBUTYNIN CHLORIDE 5 MG TABLET PO SCH ×2 (08:54→16:45)
[2017-02-04] MEDS: LevETIRAcetam 500 MG TABLET PO SCH ×2 (08:54→16:45)
[2017-02-04] MEDS: DIVALPROEX SODIUM 500 MG ER TABLET PO SCH ×2 (08:54→16:45)
[2017-02-04 11:17] VITALS: BP 151/69
[2017-02-04] MEDS: ACETAMINOPHEN 325 MG TABLET PO PRN (11:18)
[2017-02-04 12:18] VITALS: BP 142/72
[2017-02-04 16:41] VITALS: BP 132/78
[2017-02-05 06:56] VITALS: BP 138/74
[2017-02-05] MEDS: LevETIRAcetam 500 MG TABLET PO SCH ×2 (08:54→17:06)
[2017-02-05] MEDS: OLANZapine 10 MG TABLET PO SCH ×2 (08:54→20:23)
[2017-02-05] MEDS: OXYBUTYNIN CHLORIDE 5 MG TABLET PO SCH ×2 (08:54→17:06)
[2017-02-05] MEDS: DIVALPROEX SODIUM 500 MG ER TABLET PO SCH ×2 (08:54→17:06)
[2017-02-05] MEDS: SENNA 218 MG/5 ML SYRUP ORAL.SYG PO SCH (08:55)
[2017-02-05 09:18] VITALS: BP 125/69
[2017-02-05] MEDS: ACETAMINOPHEN 325 MG TABLET PO PRN ×2 (09:22→23:43)
[2017-02-05 23:37] VITALS: BP 131/54
[2017-02-06 00:03] VITALS: BP 131/54
[2017-02-06] MEDS: OLANZapine 10 MG TABLET PO SCH ×2 (08:51→20:57)
[2017-02-06] MEDS: DIVALPROEX SODIUM 500 MG ER TABLET PO SCH ×2 (08:51→17:17)
[2017-02-06] MEDS: OXYBUTYNIN CHLORIDE 5 MG TABLET PO SCH ×2 (08:51→17:17)
[2017-02-06] MEDS: LevETIRAcetam 500 MG TABLET PO SCH ×2 (08:51→17:17)
[2017-02-06] MEDS: SENNA 218 MG/5 ML SYRUP ORAL.SYG PO SCH (08:52)
[2017-02-06 09:12] VITALS: BP 139/98
[2017-02-06 16:39] VITALS: BP 129/82
[2017-02-06] MEDS: ACETAMINOPHEN 325 MG TABLET PO PRN (17:17)
[2017-02-07 01:21] VITALS: BP 130/70
[2017-02-07 08:16] VITALS: BP 147/76
[2017-02-07] MEDS: DIVALPROEX SODIUM 500 MG ER TABLET PO SCH ×2 (10:16→17:39)
[2017-02-07] MEDS: OLANZapine 10 MG TABLET PO SCH ×2 (10:17→21:00)
[2017-02-07] MEDS: OXYBUTYNIN CHLORIDE 5 MG TABLET PO SCH ×2 (10:17→17:39)
[2017-02-07] MEDS: SENNA 218 MG/5 ML SYRUP ORAL.SYG PO SCH (10:17)
[2017-02-07] MEDS: LevETIRAcetam 500 MG TABLET PO SCH ×2 (10:17→17:39)
[2017-02-07 16:00] VITALS: BP 135/85
[2017-02-07 22:25] VITALS: BP 105/62
[2017-02-08 06:50] VITALS: BP 133/81
[2017-02-08] MEDS: DIVALPROEX SODIUM 500 MG ER TABLET PO SCH ×2 (08:51→17:22)
[2017-02-08] MEDS: OXYBUTYNIN CHLORIDE 5 MG TABLET PO SCH ×2 (08:51→17:22)
[2017-02-08] MEDS: SENNA 218 MG/5 ML SYRUP ORAL.SYG PO SCH (08:51)
[2017-02-08] MEDS: OLANZapine 10 MG TABLET PO SCH ×2 (08:51→20:02)
[2017-02-08] MEDS: LevETIRAcetam 500 MG TABLET PO SCH ×2 (08:51→17:22)
[2017-02-08 08:57] VITALS: BP 135/89
[2017-02-08 16:15] VITALS: BP 130/85
[2017-02-09 06:37] VITALS: BP 137/89
[2017-02-09 08:21] VITALS: BP 142/88
[2017-02-09] MEDS: OXYBUTYNIN CHLORIDE 5 MG TABLET PO SCH ×2 (08:42→17:36)
[2017-02-09] MEDS: LevETIRAcetam 500 MG TABLET PO SCH ×2 (08:42→17:36)
[2017-02-09] MEDS: SENNA 218 MG/5 ML SYRUP ORAL.SYG PO SCH (08:42)
[2017-02-09] MEDS: OLANZapine 10 MG TABLET PO SCH ×2 (08:42→20:34)
[2017-02-09] MEDS: DIVALPROEX SODIUM 500 MG ER TABLET PO SCH ×2 (08:42→17:36)
[2017-02-09 16:05] VITALS: BP 135/82
[2017-02-10 06:47] VITALS: BP 138/63
[2017-02-10] MEDS: OLANZapine 10 MG TABLET PO SCH ×2 (08:36→20:44)
[2017-02-10] MEDS: DIVALPROEX SODIUM 500 MG ER TABLET PO SCH ×2 (08:37→17:42)
[2017-02-10] MEDS: LevETIRAcetam 500 MG TABLET PO SCH ×2 (08:38→17:42)
[2017-02-10] MEDS: OXYBUTYNIN CHLORIDE 5 MG TABLET PO SCH ×2 (08:38→17:42)
[2017-02-10] MEDS: HALOPERIDOL 5 MG TABLET PO PRN (08:39)
[2017-02-10 08:46] VITALS: BP 126/66
[2017-02-10] MEDS: SENNA 218 MG/5 ML SYRUP ORAL.SYG PO SCH (09:13)
[2017-02-10 18:24] VITALS: BP 118/75
[2017-02-11 06:19] VITALS: BP 129/72
[2017-02-11 08:16] VITALS: BP 112/62
[2017-02-11] MEDS: OXYBUTYNIN CHLORIDE 5 MG TABLET PO SCH (08:30)
[2017-02-11] MEDS: SENNA 218 MG/5 ML SYRUP ORAL.SYG PO SCH (08:30)
[2017-02-11] MEDS: LevETIRAcetam 500 MG TABLET PO SCH (08:30)
[2017-02-11] MEDS: DIVALPROEX SODIUM 500 MG ER TABLET PO SCH (08:30)
[2017-02-11] MEDS: HALOPERIDOL 5 MG TABLET PO PRN (08:31)
[2017-02-11] MEDS: OLANZapine 10 MG TABLET PO SCH (08:31)
[2017-02-11] MEDS ORDERED: OLAN10TA3 PO (10:43)
[2017-02-11] MEDS ORDERED: SENN8.6T52 PO (11:12)
[2017-02-11] MEDS ORDERED: DIVA500T52 PO (11:12)
[2017-02-11] MEDS ORDERED: LEVE500T53 PO (11:14)
== END 2017-02-11 15:55 | disposition home health service (06) | DRG 750 ==
LOC: EMS 07:16 → B3A 09:47 → B2S 09-29 19:53 → B3A 11-29 13:00 → B2S 01-13 21:49
DX: F25.1 Schizoaffective disorder, depressive type (principal); R45.851 Suicidal ideations; R00.1 Bradycardia, unspecified; F12.90 Cannabis use, unspecified, uncomplicated; E87.6 Hypokalemia; F22 Delusional disorders; F43.10 Post-traumatic stress disorder, unspecified; R29.6 Repeated falls; E55.9 Vitamin D deficiency, unspecified; Z59.0 Homelessness
CPT/HCPCS: 70450; 82306; 82607; 82746; 82962; 83036; 83735; 84439; 84443; 85007; 87081; 93005; 99285; G0480

== ENCOUNTER 2016-09-26 10:28 | Emergency (ER) | payer MEDICAID ==
[~2016-09-26] VITALS: Ht 180.3 cm; Wt 109.0 kg
[~2016-09-26 10:28] MED LIST changes: -FERR-89 PO
[2016-09-26 11:20] LABS: BASOPHILS # (AUTO) 0.01 K/uL (0.00-0.20); BASOPHILS % (AUTO) 0.1 % (0.0-2.0); EOSINOPHILS # (AUTO) 0.23 K/uL (0.00-0.70); EOSINOPHILS % (AUTO) 5.08 % (1.0-6.0); HEMATOCRIT 38.6 % (41-53); HEMOGLOBIN 12.4 g/dL (13.5-17.5); LYMPHOCYTES # (AUTO) 0.7 K/uL (1.0-4.8); LYMPHOCYTES % (AUTO) 16.1 % (22.0-44.0); MEAN CORPUSCULAR HEMOGLOBIN 29.1 pg (26.0-34.0); MEAN CORPUSCULAR HGB CONC 32.2 G/dL (31.0-37.0); MEAN CORPUSCULAR VOLUME 90 fL (80-100); MONOCYTES # (AUTO) 0.5 K/uL (0.1-1.0); MONOCYTES % (AUTO) 10.3 % (2.0-9.0); NEUTROPHILS # (AUTO) 3.1 K/uL (1.8-7.7); NEUTROPHILS % (AUTO) 68.4 % (40.0-70.0); PLATELET COUNT (AUTO) 214 K/uL (150-450); RED BLOOD CELL COUNT(AUTO) 4.27 MIL/uL (4.50-5.90); RED CELL DISTRIBUTION WIDTH 14.6 % (11.5-14.5); WHITE BLOOD COUNT (AUTO) 4.6 K/uL (4.5-11.0)
[2016-09-26 11:39] LABS: ANION GAP 4 mmol/L (8-16); CALCIUM, TOTAL 8.6 mg/dL (8.8-10.5); CARBON DIOXIDE 34 mmol/L (22-29); CHLORIDE 105 mmol/L (98-107); CREATININE 0.87 mg/dL (0.60-1.30); GLOMERULAR FILTR. RATE CALC > 60 mL/min (>60); POTASSIUM 4.2 mmol/L (3.5-5.1); SODIUM SERUM 143 mmol/L (136-145); UREA NITROGEN, BLOOD 12 mg/dL (7-18)
[2016-09-26 11:42] LABS: AMMONIA < 10 umol/L (11-32); TROPONIN I < 0.02 ng/mL (0.00-0.05)
[2016-09-26 11:43] LABS: ALANINE AMINOTRANSFERASE 20 U/L (12-78); ALBUMIN 3.3 g/dL (3.4-5.0); ASPARTATE AMINOTRANSFERASE 19 U/L (15-37); BILIRUBIN,TOTAL 0.2 mg/dL (0.1-1.0); TOTAL PROTEIN, SERUM 7.3 g/dL (6.4-8.2)
[2016-09-26 11:46] LABS: B-TYPE NATRIURETIC PEPTIDE 21 pg/mL (0-100)
[2016-09-26 11:52] LABS: APPEARANCE,URINE CLEAR (CLEAR); GLUCOSE, URINE (UA) NEGATIVE (NEGATIVE); KETONES,URINE NEGATIVE (NEGATIVE); LEUKOCYTE ESTERASE ,URINE NEGATIVE (NEGATIVE); OCCULT BLOOD,URINE NEGATIVE (NEGATIVE); PH,URINE 7.5 (5.0-8.0); PROTEIN,URINE NEGATIVE (NEGATIVE)
[2016-09-26 11:54] LABS: ADD UA MICROSCOPIC NO
[2016-09-26 12:24] LABS: ACETAMINOPHEN < 2 mcg/mL (10-30)
[2016-09-26 12:29] LABS: SALICYLATE < 2.8 mg/dL (2.8-20.0)
[2016-09-26 13:31] VITALS: BP 140/77
== END 2016-09-26 14:23 | disposition home or self-care (01) ==
LOC: EMS 10:29
DX: S20.219A Contusion of unspecified front wall of thorax, initial encounter (principal); D64.9 Anemia, unspecified; F43.10 Post-traumatic stress disorder, unspecified; W01.0XXA Fall on same level from slipping, tripping and stumbling without subsequent striking against object, initial encounter; Y93.89 Activity, other specified; Y92.89 Other specified places as the place of occurrence of the external cause; Y99.8 Other external cause status
CPT/HCPCS: 36415; 70450; 80053; 80307; 81003; 82140; 83880; 84484; 85025; 93005; 99285; G0480 ×2; G0481

== ENCOUNTER 2016-12-10 13:04 | Emergency (ER) | payer MEDICAID ==
[~2016-12-10] VITALS: Ht 180.3 cm; Wt 118.0 kg
[2016-12-10] MEDS ORDERED: LORA2TAB80 PO (13:42)
[2016-12-10] MEDS ORDERED: HALO5TAB23 PO (13:42)
[2016-12-10] MEDS ORDERED: LOPE1LIQ97 PO (13:42)
[2016-12-10] MEDS ORDERED: [UNRECOGNIZED DRUG - CODE] PO (13:42)
[2016-12-10] MEDS ORDERED: ZOLP10TA6 PO (13:42)
[2016-12-10] MEDS ORDERED: CLON0.1T PO (13:42)
[2016-12-10] MEDS ORDERED: OXYB5TAB27 PO (13:42)
[2016-12-10] MEDS ORDERED: ACET-2902 PO (13:42)
[2016-12-10] MEDS ORDERED: KETOROLAC TROMETHAMINE 60 MG/2 ML VIAL IM ONE ×2 (14:27→16:15)
[2016-12-10 17:20] VITALS: BP 138/68
== END 2016-12-10 17:55 | disposition home or self-care (01) ==
LOC: EMS 13:05
DX: S13.9XXA Sprain of joints and ligaments of unspecified parts of neck, initial encounter (principal); W19.XXXA Unspecified fall, initial encounter; Y93.89 Activity, other specified; Y92.89 Other specified places as the place of occurrence of the external cause; Y99.8 Other external cause status
CPT/HCPCS: 72040; 96372; 99284; J1885

== ENCOUNTER 2016-12-26 08:29 | Emergency (ER) | payer MEDICAID ==
[~2016-12-26] VITALS: Ht 177.8 cm; Wt 97.7 kg
[~2016-12-26 08:29] MED LIST changes: +ACET-2902 PO; +CLON0.1T PO; +HALO5TAB23 PO; +LOPE1LIQ97 PO; +LORA2TAB80 PO; +OXYB5TAB27 PO; +ZOLP10TA6 PO; +[UNRECOGNIZED DRUG - CODE] PO
[2016-12-26] MEDS ORDERED: ZOLP10 PO (08:43)
[2016-12-26] MEDS ORDERED: OXYB5 PO (08:43)
[2016-12-26] MEDS ORDERED: SENN8.8S12 PO (08:43)
[2016-12-26] MEDS ORDERED: LORA2TAB2 PO (08:43)
[2016-12-26 09:14] LABS: BASOPHILS % (AUTO) 0.3 % (0.0-2.0); HEMATOCRIT 40.3 % (41-53); HEMOGLOBIN 13.7 g/dL (13.5-17.5); LYMPHOCYTES # (AUTO) 0.8 K/uL (1.0-4.8); LYMPHOCYTES % (AUTO) 15.9 % (22.0-44.0); MEAN CORPUSCULAR HEMOGLOBIN 29.8 pg (26.0-34.0); MEAN CORPUSCULAR VOLUME 88 fL (80-100); MONOCYTES # (AUTO) 0.5 K/uL (0.1-1.0); MONOCYTES % (AUTO) 9.4 % (2.0-9.0); NEUTROPHILS # (AUTO) 3.6 K/uL (1.8-7.7); NEUTROPHILS % (AUTO) 73.4 % (40.0-70.0); PLATELET COUNT (AUTO) 186 K/uL (150-450); RED CELL DISTRIBUTION WIDTH 13.4 % (11.5-14.5); WHITE BLOOD COUNT (AUTO) 4.9 K/uL (4.5-11.0)
[2016-12-26 09:26] LABS: ANION GAP 7 mmol/L (8-16); CALCIUM, TOTAL 9.3 mg/dL (8.8-10.5); CARBON DIOXIDE 32 mmol/L (22-29); CHLORIDE 104 mmol/L (98-107); CREATININE 0.87 mg/dL (0.60-1.30); GLOMERULAR FILTR. RATE CALC > 60 mL/min (>60); POTASSIUM 4.2 mmol/L (3.5-5.1); SODIUM SERUM 143 mmol/L (136-145); UREA NITROGEN, BLOOD 12 mg/dL (7-18)
[2016-12-26 09:32] LABS: ALANINE AMINOTRANSFERASE 17 U/L (12-78); ALBUMIN 3.7 g/dL (3.4-5.0); ASPARTATE AMINOTRANSFERASE 21 U/L (15-37); BILIRUBIN,TOTAL 0.4 mg/dL (0.1-1.0); TOTAL PROTEIN, SERUM 8.4 g/dL (6.4-8.2)
[2016-12-26 09:40] LABS: RBC MORPHOLOGY COMMENT NORMAL RBC MORPH
[2016-12-26] MEDS ORDERED: LevETIRAcetam 100 MG/ML 5 ML SOLUTION UDCUP PO ONE (09:45)
[2016-12-26 10:59] VITALS: BP 135/71
== END 2016-12-26 11:28 | disposition home or self-care (01) ==
LOC: EMS 08:31
DX: G40.89 Other seizures (principal)
CPT/HCPCS: 82962; 99284